=== PATIENT | male | born 1935 | race Caucasian/White ===

== ENCOUNTER 2018-06-14 09:32 | Emergency (ER) | payer MEDICARE, BC ==
[2018-06-14] MEDS ORDERED: Acetaminophen 500 MG TAB ONE (10:04)
--- NOTE | 2018-06-14 12:38 | RAD ---
RIGHT HUMERUS FRONTAL AND LATERAL IMAGIN06/14/2018 HISTORY: Bruising and pain. COMPARISON: None. FINDINGS: The humeral head is not fully imaged superiorly. Please see dedicated right shoulder series. The im aged portions of the right humerus demonstrate no displaced fracture. IMPRESSION: No acute fracture of the right humerus. POS: [facility]
--- NOTE | 2018-06-14 12:45 | RAD ---
RIGHT SHOULDER THREE VIEWS: HISTORY: Pain. Bruising. COMPARISON: 11/27/2013 FINDINGS: There appear to be chronic changes involving the right shoulder. No fracture or dislocation. IMPRESSION: Chronic changes. No fracture or dislocation. POS: [facility]
== END 2018-06-14 11:12 | disposition home or self-care (01) ==
LOC: ERS 09:32
DX: S40.011A Contusion of right shoulder, initial encounter (principal); S40.021A Contusion of right upper arm, initial encounter; Z87.891 Personal history of nicotine dependence; X58.XXXA Exposure to other specified factors, initial encounter

== ENCOUNTER 2019-03-10 13:37 | Outpatient (CLI) | payer MEDICARE, BC ==
--- NOTE | 2019-03-10 13:53 | RAD ---
XR Lumbar Spine 2 Or 3 View History: M 48.062 lumbar stenosis with claudication Comparison: Radiograph 2014 Findings: Right unilateral posterior spinal fusion hardware at L4-L5 without hardware complication. L 4/L5 anterolisthesis is similar. Progressive L5/S1 degenerative disc space height loss as well as L3/L4 and L2/L3 degenerative disc space height loss. 3 mm L2 over L3 retrolisthesis has progressed. Laminectomy changes L4/L5. Paraspinal soft tissues appear unremarkable. Impression: Mild progressive degenerative disease without acute osseous abnormality.
--- NOTE | 2019-03-10 14:56 | MRI ---
Exam: MRI LUMBAR SPINE WITHOUT CONTRAST: Comparison: 02/05/2007 Correlation: Lumbar spine radiograph series 03/10/2019 FINDINGS: Appropriate T1 marrow signal intensity of the lumbar vertebra. Lumbar spine vertebral body height is maintained. No fracture. Unilateral right sided transpedicular screw at L4-L5 with associated metallic streak artifact. 3.7 mm of retrolisthesis of L1 upon L2 , 4.5 mm retrolisthesis of L2 upon L3, 5.9 mm retrolisthesis of L4 upon L5. Appropriate signal intensity of the paraspinal muscles. Conus medullaris terminates at the inferior aspect of T12. Postcontrast images do not demonstrate any abnormal enhancement of the vertebral bodies. There is no abnormal enhancement within the thecal sac including the cauda equina and conus medullaris. The overall AP diameter of the central spinal canal is narrowed secondary to congenitally foreshorten ed pedicles T12-L1: No significant central canal stenosis or neural foraminal narrowing L1-L2: Mild loss of disc space height. No significant central canal stenosis. Mild to moderate bilate ral foraminal narrowing. L2-L3: Moderate loss of disc space height. Broad-based disc bulge, ligament flavum thickening and fac et hypertrophy result in mild to moderate central canal stenosis. Mass effect and narrowing of bilateral subarticular zones, left greater than right. Partial obscuration of both traversing L3 nerv e roots, left greater than right. Severe right and moderate to severe left foraminal narrowing. L3-L4: Mild to moderate loss of disc space height. Broad-based disc bulge, ligamentum flavum thickeni ng and facet hypertrophy result in severe central canal stenosis. Severe right and moderate to severe left neural foraminal narrowing. L4-L5: Broad-based disc bulge, bilateral facet hypertrophy are noted. There is mild central canal akiko nosis. Moderate to severe right and moderate left foraminal narrowing. There is fluid in left facet joint. L5-S1: Posterior laminectomy defect. There is a central/left subarticular disc protrusion. Disc mater ial obscures the traversing left S1 nerve root. Right subarticular zone is unremarkable. Moderate to severe right and left neural foraminal narrowing. IMPRESSION: 1. Unilateral right-sided transpedicular screws at L4-L5. 2. Spondylolisthesis as described above. 3. Central canal stenosis and foraminal narrowing as detailed above. 4. Central/left subarticular disc protrusion at L5-S1. Obscuration of the traversing left S1 nerve ro ot. Transcribed Date/Time: 03/10/2019 3:15 PM
== END 2019-03-10 13:38 | disposition home or self-care (01) ==
LOC: TBSIIMAG 13:37
PROVIDERS: ATTEND Neurological Surgery
DX: M48.062 Spinal stenosis, lumbar region with neurogenic claudication (principal); M51.36 Other intervertebral disc degeneration, lumbar region
CPT/HCPCS: 72100; 72158; 82565

== ENCOUNTER 2020-01-12 09:20 | Observation (INO) | payer MEDICARE, BC, OTHER ==
[2020-01-12] MEDS ORDERED: Aspirin Chewable 81 MG TAB ONE ×2 (09:38)
[2020-01-12 10:06] LABS: #Basophils 0.1 thou/uL (0.0-0.2); #Eosinphils 0.1 thou/uL (0.0-0.7); #Lymphocytes 1.9 thou/uL (1.20-3.40); #Monocytes 0.7 thou/uL (0.11-0.59); %Basophils 0.9 % (0.0-1.0); %Eosinophils 1.2 % (0.0-10.0); %Lymphocytes 24.8 % (21.0-51.0); %Monocytes 8.8 % (0.0-10.0); %Neutrophils 64.3 % (42.0-75.0); Hemoglobin 14.9 g/dL (14.0-18.0); Mean Corpuscular Hemoglobin 30.6 pg (27.0-31.0); Mean Corpuscular Volume 92.8 fL (78.0-98.0); Mean Platelet Volume 6.6 fL (7.4-10.4); Platelet Count 133 thou/uL (130-400); RBC Distribution Width 13.4 % (11.5-14.5); Red Blood Cell (RBC) Count 4.86 mill/uL (4.70-6.10); White Blood Cell (WBC) Count 7.8 thou/uL (4.8-10.8)
[2020-01-12 10:18] LABS: ALT (SGPT) 22 U/L (8-55); AST (SGOT) 23 U/L (5-34); Albumin 3.9 g/dL (3.4-4.8); Alkaline Phosphatase 79 U/L (40-110); Anion Gap 12 mmol/L (10-20); BUN (Urea Nitrogen) 15 mg/dL (8.4-25.7); Bilirubin, Total 0.6 mg/dL (0.2-1.2); Calc. Creatinine Clearance 0 mL/min (70-130); Calcium 9.2 mg/dL (7.8-10.44); Carbon Dioxide 27 mmol/L (23-31); Chloride 101 mmol/L (98-107); Estimated GFR-MDRD Greater than 90; Globulin 2.7 g/dL (2.4-3.5); Glucose 90 mg/dL (83-110); Potassium 4.2 mmol/L (3.5-5.1); Protein, Total 6.6 g/dL (5.8-8.1); Sodium 136 mmol/L (136-145)
--- NOTE | 2020-01-12 10:24 | RAD ---
Exam: Chest one view HISTORY:Left-sided chest pain Comparison: None FINDINGS: Cardiac silhouette: Normal Aorta: Atherosclerosis Pulmonary vessels: Normal Costophrenic angles: Clear LUNGS: No masses or consolidation. Pneumothorax: None Osseous abnormalities: None IMPRESSION: No acute cardiopulmonary process.
[2020-01-12] MEDS ORDERED: Acetaminophen 650 MG Suppository PR PRN (11:34)
[2020-01-12] MEDS ORDERED: HYDROcodone/Acetaminophen 5/325 mg Tablet PO PRN ×2 (11:34)
[2020-01-12] MEDS ORDERED: Nitroglycerin 0.4 MG TAB (25 Tab Bottle) PO PRN (11:34)
[2020-01-12] MEDS ORDERED: Acetaminophen 325 MG TAB PO PRN (11:34)
--- NOTE | 2020-01-12 11:48 | PDOC.HHP ---
Hospitalist HPI - History of Present Illness chest pain History of Present Illness: Case of an 84y/o male with pmhx of neuropathy, retinal detachment, macular degeneration and chronic back and shoulder pain who comes to hospital due to chest pain. patient refers he was on his usual state of health until todays morning when he started with chest pain. pain is described as stabbing 7/10 that radiates to the back, usually last a fews seconds and has reported over 15 episodes today. patient denies any sob, palpitations n/v or diaphoresis. of note family members does mentions that recently patients legs have began to swell, denies orthopnea or PND Hospitalist ROS - Review of Systems All other systems reviewed; all pertinent +/- noted in HPI/Subj Hospitalist History - Past Medical History Source: patient Heme/Onc: reports: Cancer (skin) Musculoskeletal: reports: Chronic low back pain, Osteoarthritis - Past Surgical History Past Surgical History: reports: Appendectomy Other Surgical History: back surgery - Family History Family History: reports: no pertinent history - Social History Smoking Status: Never smoker Alcohol: reports: None Drugs: reports: none Living Situation: With Family Activity level: independent ambulation - Exam General Appearance: NAD, awake alert Eye: PERRL, anicteric sclera ENT: normocephalic atraumatic Neck: supple, symmetric, no JVD Heart: RRR, no murmur, no gallops Respiratory: CTAB, no wheezes, no rales Gastrointestinal: soft, non-tender, non-distended Extremities: no cyanosis, no clubbing, 2+ LE edema Skin: normal turgor, no lesions Neurological: cranial nerve grossly intact, normal sensation to touch, no weakness Musculoskeletal: normal tone, normal strength Psychiatric: normal affect, normal behavior, A&O x 3 Hospitalist Results - Labs Result Diagrams: 01/12/20 09:51 01/12/20 09:51 Lab results: WBC 7.8 thou/uL (4.8-10.8) 01/12/20 09:51 Hgb 14.9 g/dL (14.0-18.0) 01/12/20 09:51 Hct 45.1 % (42.0-52.0) 01/12/20 09:51 MCV 92.8 fL (78.0-98.0) 01/12/20 09:51 Plt Count 133 thou/uL (130-400) 01/12/20 09:51 Neutrophils % 64.3 % (42.0-75.0) 01/12/20 09:51 Sodium 136 mmol/L (136-145) 01/12/20 09:51 Potassium 4.2 mmol/L (3.5-5.1) 01/12/20 09:51 Chloride 101 mmol/L (98-107) 01/12/20 09:51 Carbon Dioxide 27 mmol/L (23-31) 01/12/20 09:51 BUN 15 mg/dL (8.4-25.7) 01/12/20 09:51 Creatinine 0.69 mg/dL (0.7-1.3) L 01/12/20 09:51 Glucose 90 mg/dL (83-110) 01/12/20 09:51 Calcium 9.2 mg/dL (7.8-10.44) 01/12/20 09:51 Total Bilirubin 0.6 mg/dL (0.2-1.2) 01/12/20 09:51 AST 23 U/L (5-34) 01/12/20 09:51 ALT 22 U/L (8-55) 01/12/20 09:51 Alkaline Phosphatase 79 U/L (40-110) 01/12/20 09:51 Troponin I 0.026 ng/mL (< 0.028) 01/12/20 09:51 B-Natriuretic Peptide 337.6 pg/mL (0-100) H 01/12/20 09:51 Serum Total Protein 6.6 g/dL (5.8-8.1) 01/12/20 09:51 Albumin 3.9 g/dL (3.4-4.8) 01/12/20 09:51 - Radiology Interpretation Chest x-ray Additional Comment: on effusions consolidations or infiltrates Hospitalist H&P A/P - Problem (1) Chest pain Code(s): R07.9 - CHEST PAIN, UNSPECIFIED Status: Acute (2) Chronic back pain Code(s): M54.9 - DORSALGIA, UNSPECIFIED; G89.29 - OTHER CHRONIC PAIN Status: Acute (3) Macular degeneration Code(s): H35.30 - UNSPECIFIED MACULAR DEGENERATION Status: Acute (4) Neuropathy Code(s): G62.9 - POLYNEUROPATHY, UNSPECIFIED Status: Acute - Plan Plan: chest pain, atypical. no ischemic changes on ekg, initial troponin negative -starting cardio protective medication with beta roxann and acei -serial troponins - initial negative - evaluate modifiable risk factors with lipid panel and a1c - prn nitro po -2d echo - consult cardiology if necessary -dvt prophylaxis
--- NOTE | 2020-01-12 12:01 | CT ---
CT PULMONARY ANGIOGRAM WITH IV CONTRAST AND 3D MIP RECONSTRUCTIONS: Date: 01/12/2020 PROVIDED CLINICAL HISTORY: Chest pain. FINDINGS: No comparison. Vascular calcification including conspicuous coronary calcium. The heart, pericardium, and great vess els demonstrate an otherwise unremarkable CT appearance for the phase of contrast in which the study was acquired. There is no evidence for central or segmental pulmonary embolus. The lungs are free of significant opacity. The airway appears patent and of normal caliber. There is no evidence for pleural fluid or pneumothorax. No evidence for thoracic lymph node enlargement. The visualized portions of the upper abdomen appear unremarkable. The osseous structures demonstrate no concerning lytic or blastic lesions. IMPRESSION: 1. No evidence for central or segmental pulmonary embolus. 2. Atherosclerosis including coronary calcium. POS: [facility]
[2020-01-12 12:37] LABS: Troponin I 0.012 ng/mL (< 0.028)
[2020-01-12] MEDS ORDERED: Iopamidol-370 76% 500 ML 1 ML ONE (12:53)
[2020-01-12 15:19] VITALS: BMI 31.9
[2020-01-12 15:53] LABS: Troponin I 0.013 ng/mL (< 0.028)
[2020-01-12] MEDS: Carvedilol 3.125 MG TAB PO SCH (17:46)
[2020-01-13 05:36] LABS: Cardiac Risk 2.9 (Less than 4.5)
[2020-01-13] MEDS: Carvedilol 3.125 MG TAB PO SCH ×2 (07:24→17:12)
[2020-01-13] MEDS: Enoxaparin Sodium 40 MG/0.4 ML SYRINGE SC SCH (07:24)
[2020-01-13] MEDS ORDERED: Aspirin 325 mg Enteric Coated Tablet PO SCH (09:00)
[2020-01-13] MEDS ORDERED: hydrALAZINE 20 MG/ML VIAL SLOW IVP PRN (13:17)
[2020-01-13 14:27] LABS: SARS-CoV-2 MS2 Positive; SARS-CoV-2 N Gene Negative; SARS-CoV-2 S Gene Negative; SARS-CoV-2 orf1ab Negative
--- NOTE | 2020-01-13 15:19 | EKG ---
Test Reason : Blood Pressure : / mmHG Vent. Rate : 061 BPM Atrial Rate : 061 BPM P-R Int : 258 ms QRS Dur : 100 ms QT Int : 408 ms P-R-T Axes : 086 -09 -08 degrees QTc Int : 410 ms Sinus rhythm with 1st degree A-V block Left ventricular hypertrophy with repolarization abnormality Cannot rule out Septal infarct , age undetermined Abnormal ECG Confirmed by ZACHERY DENIS MD ([id number]), video effects editor JOANIE DOSHI ([id number]) on 01/13/2020 3:18:57 PM Referred By: Confirmed By:ZACHERY DENIS MD
--- NOTE | 2020-01-13 16:03 | PDOC.HOSPP ---
- Subjective Encounter Date: 01/13/20 Encounter Time: 10:00 Subjective: patient seen on f/u for covid r/o and chest pain. patient refers feeling fine denies any chest pain palpitation sob fever or chills. he does complain of some leg pain which is chronic, goes to pain clinic in institution - Objective Vital Signs & Weight: Vital Signs (12 hours) Temp Pulse Resp BP Pulse Ox 01/13/20 15:19 161/77 H 01/13/20 12:31 97.8 F 62 20 185/89 H 98 01/13/20 07:51 97.4 F L 68 20 190/86 H 97 01/13/20 05:24 66 175/77 H 01/13/20 04:23 98 F 64 16 193/82 H 100 Weight Weight 229 lb I&O: 01/12/20 01/13/20 01/14/20 06:59 06:59 06:59 Intake Total 300 480 Output Total 1100 500 Balance -800 -20 Result Diagrams: 01/12/20 09:51 01/12/20 09:51 Hospitalist ROS - Review of Systems All other systems reviewed; all pertinent +/- noted in HPI/Subj - Medication Medications: Active Medications Generic Name Dose Route Start Last Admin Trade Name Freq PRN Reason Stop Dose Admin Aspirin 325 mg 01/13/20 09:00 01/13/20 07:24 Ecotrin PO 325 mg DAILY NAYELY Administration Carvedilol 3.125 mg 01/12/20 17:00 01/13/20 07:24 Coreg PO 3.125 mg BID-WM NAYELY Administration Enoxaparin Sodium 40 mg 01/13/20 09:00 01/13/20 07:24 Lovenox SC 40 mg 0900 NAYELY Administration - Exam General Appearance: NAD, awake alert Eye: PERRL, anicteric sclera ENT: normocephalic atraumatic, no oropharyngeal lesions Neck: supple, no JVD, no thyromegaly Heart: RRR, no murmur, no gallops Respiratory: CTAB, no wheezes, no rales Gastrointestinal: soft, non-tender, non-distended, no palpable masses Extremities: no cyanosis, no clubbing, 2+ LE edema Skin: normal turgor, no lesions Neurological: cranial nerve grossly intact, normal sensation to touch Musculoskeletal: normal tone, normal strength Psychiatric: normal affect, normal behavior, A&O x 3 Hosp A/P (1) Chest pain Code(s): R07.9 - CHEST PAIN, UNSPECIFIED Status: Acute (2) Chronic back pain Code(s): M54.9 - DORSALGIA, UNSPECIFIED; G89.29 - OTHER CHRONIC PAIN Status: Acute (3) Macular degeneration Code(s): H35.30 - UNSPECIFIED MACULAR DEGENERATION Status: Acute (4) Neuropathy Code(s): G62.9 - POLYNEUROPATHY, UNSPECIFIED Status: Acute (5) COVID-19 ruled out Code(s): Z03.818 - ENCNTR FOR OBS FOR SUSP EXPSR TO OTH BIOLG AGENTS RULED OUT Status: Acute (6) Uncontrolled hypertension Code(s): I10 - ESSENTIAL (PRIMARY) HYPERTENSION Status: Acute - Plan - troponin negative x 3 - chest pain free - a1c of 5 - adequate cholesterol, heart risk ratio of 2.9 - covid 19 r/o will discontinued isolation - 2d echo pending, needed to evaluated undiagnosed chf, recent new onset of leg swelling - uncontrolled htn, hydralazine prn. started on lisinopril 10mg pod, will likely require a higher dose -dvt prophylaxis
[2020-01-14] MEDS: Carvedilol 3.125 MG TAB PO SCH (08:00)
[2020-01-14] MEDS: Enoxaparin Sodium 40 MG/0.4 ML SYRINGE SC SCH (08:00)
[2020-01-14] MEDS ORDERED: Chlorthalidone 25 MG TAB PO SCH (09:00)
[2020-01-14] MEDS ORDERED: Aspirin 81 mg Enteric Coated Tablet PO SCH (09:00)
[2020-01-14] MEDS ORDERED: Lisinopril 10 MG TAB PO SCH ×3 (09:00)
--- NOTE | 2020-01-14 14:33 | PDOC.HOSPP ---
- Subjective Encounter Date: 01/14/20 Encounter Time: 08:00 Subjective: no overnight events. this morning swelling is improved. Has no complaints. Denies syncope, presyncope, palpitaitons, chest pain, dyspnea, orthopnea, PND. Daughter at bedside surprised at exam findings c/w heart failure but recalls later during encounter that the possibility of heart failure was mentioned. - Objective Vital Signs & Weight: Vital Signs (12 hours) Temp Pulse Resp BP BP Pulse Ox 01/14/20 11:40 97.5 F L 63 16 151/66 H 97 01/14/20 09:46 71 121/59 L 01/14/20 07:43 97.8 F 66 18 191/87 H 96 01/14/20 04:55 98.2 F 82 14 138/64 96 Weight Weight 229 lb I&O: 01/13/20 01/14/20 01/15/20 06:59 06:59 06:59 Intake Total 300 960 Output Total 1100 1800 Balance -800 -840 Result Diagrams: 01/12/20 09:51 01/12/20 09:51 Hospitalist ROS - Review of Systems Constitutional: denies: fever, chills, sweats, weakness, malaise, other Respiratory: denies: cough, dry, shortness of breath, hemoptysis, SOB with excertion, pleuritic pain, sputum, wheezing, other Cardiovascular: denies: chest pain, palpitations, orthopnea, paroxysmal noc. dyspnea, edema, light headedness, other Gastrointestinal: denies: nausea, vomiting, abdominal pain, diarrhea, constipation, melena, hematochezia, other - Medication Medications: Active Medications Generic Name Dose Route Start Last Admin Trade Name Freq PRN Reason Stop Dose Admin Aspirin 81 mg 01/14/20 09:00 01/14/20 08:54 Ecotrin PO 81 mg DAILY NAYELY Administration Carvedilol 3.125 mg 01/12/20 17:00 01/14/20 08:00 Coreg PO 3.125 mg BID-WM NAYELY Administration Chlorthalidone 25 mg 01/14/20 09:00 01/14/20 08:54 Hygroton PO 25 mg DAILY NAYELY Administration Enoxaparin Sodium 40 mg 01/13/20 09:00 01/14/20 08:00 Lovenox SC 40 mg 0900 NAYELY Administration Sodium Chloride 10 ml 01/13/20 21:00 01/14/20 08:01 Flush - Normal Saline IVF 10 ml Q12HR NAYELY Administration - Exam General Appearance: NAD, awake alert Neck: no JVD Heart: RRR, no murmur, no gallops Respiratory: no wheezes, no ronchi, no tachypnea Respiratory - other findings: b/l lower field inspiratory rales Gastrointestinal: soft, non-tender, non-distended Extremities: 2+ LE edema Extremities - other findings: per patient, improved Psychiatric: normal affect, normal behavior, A&O x 3 Hosp A/P - Plan #HFpEF -HF2pEF score 5; considering elevated BNP, likely has HFpEF -better control of HTN -diuresis #HTN -poorly controlled -start chlorthalidone ELOS: likely DC later today or tomorrow
[2020-01-14 15:51] VITALS: BP 139/74; TEMP 98.1
[2020-01-15] MEDS ORDERED: Lisinopril 10 MG TAB PO SCH (09:00)
--- NOTE | 2020-01-16 06:18 | DIS ---
DATE OF ADMISSION: 01/12/2020 DATE OF DISCHARGE: 01/14/2020 HOSPITAL COURSE: Mr. Leigh is an 84-year-old male with medical history of chronic back pain and shoulder pain, who presented with chest pain and new onset lower extremity swelling. He was diagnosed with noncardiac chest pain as well as new onset CHF with preserved ejection fraction based on an HF2PEF score of 5 and elevated BNP. The patient was started on ALVARO inhibitor and beta-roxann, and his symptoms have improved. Prior to discharge, the patient was provided instructions regarding his new diagnosis of heart failure as well as followup appointment with Cardiology. He was discharged hemodynamically stable with better controlled blood pressure considering he presented with grossly elevated blood pressure and resolution of chest pain. PHYSICAL EXAMINATION: VITAL SIGNS: Blood pressure 151/66, temperature 97.5, pulse 63, respiratory rate 16, and oxygen saturation 97% on room air. GENERAL: Lying comfortably in bed. Awake and alert. NECK: No JVD. HEART: Regular rate and rhythm. No murmur. No gallops. RESPIRATORY: No wheezing, rhonchi, or tachypnea. Has mild bilateral lower field inspiratory rales. GI: Soft, nontender, and nondistended. EXTREMITIES: +2 lower extremity edema, pitting, equal bilateral, per the patient improved compared to the day of admission. PSYCHIATRIC: Proper mood and affect. Alert and oriented x3. MEDICATION LIST: New medications; 1. Aspirin 81 mg p.o. daily. 2. Carvedilol 3.125 mg p.o. b.i.d. 3. Chlorthalidone 25 mg p.o. daily. 4. Lasix 20 mg p.o. b.i.d. eight tablets, pending appointment with Cardiology. 5. Lisinopril 20 mg p.o. daily. Other medications were unchanged. Job ID: [id number]
== END 2020-01-14 16:40 | disposition home or self-care (01) ==
LOC: ERS 09:20 → ERHOLD 11:03 → 2NO 14:48 → 2SW 15:01 → 2NO 01-13 16:34
PROVIDERS: ADMIT Internal Medicine; ATTEND Internal Medicine
DX: R07.89 Other chest pain (principal); I11.0 Hypertensive heart disease with heart failure; I50.30 Unspecified diastolic (congestive) heart failure; G89.29 Other chronic pain; M54.9 Dorsalgia, unspecified; H35.30 Unspecified macular degeneration; G62.9 Polyneuropathy, unspecified; Z79.82 Long term (current) use of aspirin; Z79.899 Other long term (current) drug therapy
CPT/HCPCS: 71045; 71275; 80053; 80061; 83036; 83880; 84443; 84484 ×2; 85025; 85379; 93005; 93306; 94760 ×2; 97139 ×3; 99285; U0003; 36415; 87635; 96372; G0378; J1650; Q9967

== ENCOUNTER 2020-01-26 07:32 | Outpatient (CLI) | payer MEDICARE, BC ==
--- NOTE | 2020-01-26 08:23 | RAD ---
EXAM: XR Cerv Sp Ap Lat STANDARD PROVIDED CLINICAL HISTORY: Cervical radiculopathy. Patient complains of bilateral shoulder pain and numbness in hands. COMPARISON: None FINDINGS: C1 to the cervicothoracic junction is seen on lateral and swimmer's views of the cervical spine. Mult ilevel degenerative changes are seen including facet degenerative changes at multiple levels. There is trace anterolisthesis of C5 on C6 likely to the facet degenerative changes at this level. The vert ebral body heights appear to be within normal limits, no obvious fracture is identified. The odontoid is not well delineated on this exam and mostly obscured on provided images including the lat eral view. Prevertebral soft tissues are within normal limits. Vascular calcifications are seen in the aortic arch and overlying the neck bilaterally. IMPRESSION: 1. Obscuration and limited evaluation of the odontoid due to overlying structures. 2. Multilevel degenerative changes in the cervical spine with trace grade 1 anterolisthesis of C5 on C6. 3. No obvious fracture is seen involving the cervical spine. 4. Given cervical radiculopathy, MRI cervical spine may be helpful for further evaluation.
--- NOTE | 2020-01-26 08:35 | RAD ---
RIGHT HIP 2 VIEWS: Date: 01/26/2020 HISTORY: Arthralgia of right hip. FINDINGS/IMPRESSION: Degenerative changes are present. No fracture, dislocation, or bony destruction is identified. POS: [facility]
--- NOTE | 2020-01-26 10:00 | MRI ---
MRI CERVICAL SPINE: DATE: 01/26/2020. PROVIDED CLINICAL HISTORY: Bilateral shoulder pain and numbness in hands. FINDINGS: Comparison is made with the examination performed 05/01/2009. There is slight anterolisthesis of C5 o n C6. Cervical alignment appears otherwise normal. No focal concerning regional marrow signal abnor mality is evident. Heterogeneity of the regional marrow signal on a senescent basis is demonstrated. Subcortical cyst-like changes are seen within the odontoid. The visualized posterior fossa and cer vicomedullary junction appear unremarkable. No definite cord signal abnormality, with limitations du e to patient motion. At C2-3, there is bilateral facet arthritis with bilateral foraminal narrowing. This is difficult to qualify due to patient motion. There is no significant central canal stenosis apparent. At C3-4, there is bilateral facet arthritis left greater than right with probably severe left foramin al narrowing. No significant right foraminal narrowing or central canal stenosis apparent. At C4-5, there is left greater than right facet arthritis and left-sided uncinate process hypertrophy with probably severe foraminal narrowing on the left. No significant central canal or right foramin al narrowing apparent. At C5-6, there is a broad-based disk-osteophyte complex, bilateral uncinate process hypertrophy, and bilateral facet arthritis. There is severe left and moderate right foraminal narrowing. There is ef facement of the ventral subarachnoid space without cord contact or deformity. At C6-7, there is a broad-based disk-osteophyte complex and bilateral uncinate process hypertrophy. Left-sided facet arthritis. Moderate bilateral foraminal narrowing. Effacement of the ventral subar achnoid space without cord contact or deformity apparent. At C7-T1, there is left-sided facet arthritis and uncinate process hypertrophy with at least moderate foraminal narrowing on the left. There is no significant central canal or right foraminal narrowing apparent. IMPRESSION: 1. Limited study due to patient motion. 2. Cervical degenerative changes producing areas of canal and foraminal narrowing as described above . These appear similar advanced with respect to the prior study. POS: [facility]
== END 2020-01-26 07:33 | disposition home or self-care (01) ==
LOC: TBSIIMAG 07:32
PROVIDERS: ATTEND Family Medicine
DX: M50.10 Cervical disc disorder with radiculopathy, unspecified cervical region (principal); M25.551 Pain in right hip; M16.11 Unilateral primary osteoarthritis, right hip; M43.12 Spondylolisthesis, cervical region; M48.02 Spinal stenosis, cervical region
CPT/HCPCS: 72040; 72141

== ENCOUNTER 2020-04-23 07:56 | Outpatient (CLI) | payer MEDICARE, BC, OTHER ==
[2020-04-23 17:59] LABS: #Basophils 0.1 thou/uL (0.0-0.2); #Eosinphils 0.3 thou/uL (0.0-0.7); #Lymphocytes 1.4 thou/uL (1.20-3.40); #Monocytes 0.7 thou/uL (0.11-0.59); #Neutrophils 5.5 thou/uL (1.40-6.50); %Basophils 0.7 % (0.0-1.0); %Eosinophils 3.2 % (0.0-10.0); %Lymphocytes 18.1 % (21.0-51.0); %Monocytes 9.1 % (0.0-10.0); %Neutrophils 68.8 % (42.0-75.0); Hemoglobin 13.1 g/dL (14.0-18.0); Mean Corpuscular HGB CONC 33.7 g/dL (32.0-36.0); Mean Corpuscular Hemoglobin 32.1 pg (27.0-31.0); Mean Corpuscular Volume 95.2 fL (78.0-98.0); Mean Platelet Volume 6.9 fL (7.4-10.4); Platelet Count 121 thou/uL (130-400); RBC Distribution Width 12.5 % (11.5-14.5)
[2020-04-23 18:19] LABS: Anion Gap 16 mmol/L (10-20); BUN (Urea Nitrogen) 26 mg/dL (8.4-25.7); Calc. Creatinine Clearance 0 mL/min (70-130); Calcium 9.1 mg/dL (7.8-10.44); Carbon Dioxide 25 mmol/L (23-31); Chloride 99 mmol/L (98-107); Estimated GFR-MDRD Greater than 90; Glucose 87 mg/dL (83-110); Potassium 4.7 mmol/L (3.5-5.1); Sodium 135 mmol/L (136-145)
[2020-04-24 15:01] LABS: SARS-CoV-2 MS2 Positive; SARS-CoV-2 N Gene Negative; SARS-CoV-2 S Gene Negative; SARS-CoV-2 by NAA Not Detected (NotDetected); SARS-CoV-2 orf1ab Negative
--- NOTE | 2020-04-24 16:21 | EKG ---
Test Reason : PREOP Blood Pressure : / mmHG Vent. Rate : 057 BPM Atrial Rate : 057 BPM P-R Int : 330 ms QRS Dur : 102 ms QT Int : 426 ms P-R-T Axes : -29 010 058 degrees QTc Int : 414 ms Sinus bradycardia with 1st degree A-V block Non-specific intra-ventricular conduction delay Abnormal ECG No previous ECGs available Confirmed by CORKY DOSHI ([id number]) on 04/24/2020 4:21:01 PM Referred By: Tereza BEAN Confirmed By:CORKY DOSHI
== END 2020-04-23 07:57 | disposition home or self-care (01) ==
LOC: LABBT 07:56
PROVIDERS: ATTEND Orthopaedic Surgery
DX: Z01.818 Encounter for other preprocedural examination (principal); Z20.828 Contact with and (suspected) exposure to other viral communicable diseases
CPT/HCPCS: 80048; 85025; U0003; 87635; 93005; 93010

== ENCOUNTER 2020-04-26 11:15 | Day surgery (SDC) | payer MEDICARE, BC ==
[2020-04-24 11:22] VITALS: BMI 33.0
--- NOTE | 2020-04-24 14:39 | HP ---
HISTORY OF PRESENT ILLNESS: The patient is an 83 year old male with several month history of pain and tingling in median distribution of his left hand without injury. He has had symptoms for several years. It has become worse over the past several months and has persisted despite restriction of activity, splinting, and use of anti-inflammatory medications. PAST MEDICAL HISTORY: The patient has a history of back surgery and neuropathy and has had previous shoulder surgery. He was hospitalized several months ago for an episode of congestive heart failure, which has been stabilized with medications under the direction of Dr. Erazo. The patient states he discussed having carpal tunnel surgery, Dr. Erazo, who found that no contraindication from a cardiac standpoint. He also has glaucoma and takes several ophthalmic drops for this. He also takes low-dose aspirin. ALLERGIES: NO KNOWN ALLERGIES. FAMILY HISTORY: Otherwise unremarkable. SOCIAL HISTORY: Otherwise unremarkable. REVIEW OF SYSTEMS: Otherwise unremarkable. PHYSICAL EXAMINATION: GENERAL: Elderly healthy male. HEENT: Unremarkable. NECK: Supple. CHEST: Clear. HEART: Regular rate and rhythm. ABDOMEN: Soft, nontender. RECTAL: Deferred. GENITAL: Deferred. EXTREMITIES: Pertinent findings in the left wrist. There is no definite swelling. There is mild thenar atrophy. There is tenderness over the median nerve. There is full range of motion. There is weakness of opposition. There is negative Tinel sign. Negative Phalen test. There is decreased sensation in median nerve distribution. Pulses are 2+. DIAGNOSTIC STUDIES: Electrodiagnostic studies performed by Dr. Gibson reveal moderately severe left carpal tunnel syndrome. IMPRESSION: Left carpal tunnel syndrome. PLAN: Endoscopic possible open left carpal tunnel release. The nature of surgery, length of recovery, and potential complications such as infection, loss of motion, incomplete relief, nerve injury, recurrence, and need for additional treatment and repeat surgery have been discussed in detail. Job ID: [id number] [facility]
[~2020-04-26 11:15] MED LIST: Dexamethasone 20 MG/5 ML VIAL ONE; Ketorolac Tromethamine 30 MG/ML VIAL ONE; Lidocaine 1% PF 5 ML VIAL ONE; Ondansetron PF 4 MG/2 ML Vial ONE; PROPOFOL 200 MG/20 ML VIAL ONE
[2020-04-26] MEDS ORDERED: Lidocaine 1% (PF) 30 ML VIAL ONE (12:42)
--- NOTE | 2020-04-26 19:20 | OP ---
DATE OF PROCEDURE: 04/26/2020 ANESTHESIA: General. PREOPERATIVE DIAGNOSIS: Left carpal tunnel syndrome. POSTOPERATIVE DIAGNOSIS: Left carpal tunnel syndrome. PROCEDURE PERFORMED: Left endoscopic carpal tunnel release. DESCRIPTION OF PROCEDURE: After satisfactory anesthesia was induced in supine position, the patient was prepped and draped in routine manner. The left arm was elevated and exsanguinated with an Esmarch bandage, and the tourniquet was inflated to 250 mmHg. A 2 cm transverse incision was made in the proximal wrist flexion crease, carried down through the subcutaneous tissues and bleeding points were controlled with Bovie cautery. Using sharp and blunt dissection, a distally-based flap at the deep forearm fascia was developed and retracted distally. Palmaris longus tendon was retracted radially. Proximal edge of the deep forearm fascia was split under direct visualization with small scissors to make sure there was no proximal impingement of the median nerve. Synovial elevator was introduced beneath the transverse carpal ligament and the synovium cleaned from the under surface. The 3M Serenity endoscopic carpal tunnel system was induced beneath the transverse carpal ligament inline with the ring finger. The distal edge of the ligament was identified and then divided in a distal to proximal direction by pulling the trigger of the assembly, engaging the knife, and withdrawing the scope proximally. This was done in several stages to make sure there was complete division of the transverse carpal ligament, which was documented with video printer. After withdrawing the scope, a carpal tunnel dilator could be inserted into the carpal tunnel and there was markedly improved passage and subcutaneous position of the instrument. The scope was reintroduced into the carpal tunnel. There was wide separation of the 2 leaves of the transverse carpal ligament. The tourniquet was released after 6 minutes. There was no excessive bleeding. The scope was withdrawn. The wound was thoroughly irrigated and closed with running subcuticular 3-0 nylon. Sterile dressing was applied. The patient immobilized in his Velcro wrist splint. He was awakened, taken to the recovery room in stable condition. There were no apparent intraoperative complications. The estimated blood loss was negligible. The patient will be discharged home in satisfactory condition, instructed on ice and elevation, and given written wound care instructions. He has tramadol at home for pain. He will be rechecked in my office in 10 to 14 days or sooner if there are any problems prior to that time. Job ID: [id number]
== END 2020-04-26 15:50 | disposition home or self-care (01) ==
LOC: SDC 11:15
PROVIDERS: ATTEND Orthopaedic Surgery
PROC: 01N54ZZ Release Median Nerve, Percutaneous Endoscopic Approach (ICD-10-PCS; principal; 2020-04-26)
DX: G56.02 Carpal tunnel syndrome, left upper limb (principal); Z87.891 Personal history of nicotine dependence; Z79.82 Long term (current) use of aspirin; Z79.899 Other long term (current) drug therapy; Z98.1 Arthrodesis status
CPT/HCPCS: J0690; J1100; J1885; J2001; J2405; J2704

== ENCOUNTER 2020-12-07 13:39 | Emergency (ER) | payer MEDICARE, BC ==
[2020-12-07] MEDS ORDERED: Morphine 4 MG/ML VIAL ONE (14:44)
== END 2020-12-07 15:46 | disposition short-term general hospital (02) ==
LOC: ERS 13:39
DX: G89.29 Other chronic pain (principal); M54.5 Low back pain; I50.30 Unspecified diastolic (congestive) heart failure; G62.9 Polyneuropathy, unspecified; Z87.891 Personal history of nicotine dependence
CPT/HCPCS: 96372; 99283; J2270

== ENCOUNTER 2021-06-09 11:58 | Emergency (ER) | payer MEDICARE, BC ==
[2021-06-09 12:43] LABS: #Eosinphils 0.1 thou/uL (0.0-0.7); #Lymphocytes 0.8 thou/uL (1.20-3.40); #Monocytes 0.7 thou/uL (0.11-0.59); #Neutrophils 6.6 thou/uL (1.40-6.50); %Basophils 0.5 % (0.0-1.0); %Eosinophils 1.7 % (0.0-10.0); %Lymphocytes 9.7 % (21.0-51.0); Hemoglobin 14.3 g/dL (14.0-18.0); Mean Corpuscular HGB CONC 34.5 g/dL (32.0-36.0); Mean Corpuscular Hemoglobin 31.7 pg (27.0-31.0); Mean Corpuscular Volume 91.8 fL (78.0-98.0); Mean Platelet Volume 6.4 fL (7.4-10.4); Platelet Count 129 thou/uL (130-400); RBC Distribution Width 12.8 % (11.5-14.5); White Blood Cell (WBC) Count 8.2 thou/uL (4.8-10.8)
[2021-06-09] MEDS ORDERED: Albuterol 200 PUFF (6.7GM INHALER) ONE (12:56)
[2021-06-09 13:05] LABS: ALT (SGPT) 17 U/L (8-55); AST (SGOT) 24 U/L (5-34); Albumin 4.1 g/dL (3.4-4.8); Alkaline Phosphatase 98 U/L (40-110); Anion Gap 14 mmol/L (10-20); BUN (Urea Nitrogen) 10 mg/dL (8.4-25.7); Bilirubin, Total 1.5 mg/dL (0.2-1.2); Calc. Creatinine Clearance 0 mL/min (70-130); Calcium 9.5 mg/dL (7.8-10.44); Carbon Dioxide 26 mmol/L (23-31); Chloride 94 mmol/L (98-107); Glucose 146 mg/dL (83-110); Potassium 4.2 mmol/L (3.5-5.1); Protein, Total 7.1 g/dL (5.8-8.1); Sodium 130 mmol/L (136-145)
[2021-06-09 13:16] LABS: SARS-CoV-2 NAA Rapid Test Not Detected (NotDetected)
== END 2021-06-09 14:58 | disposition home or self-care (01) ==
LOC: ERS 11:58
DX: B34.9 Viral infection, unspecified (principal); J98.01 Acute bronchospasm; Z20.822 Contact with and (suspected) exposure to COVID-19; Z79.899 Other long term (current) drug therapy; Z79.82 Long term (current) use of aspirin; I50.30 Unspecified diastolic (congestive) heart failure; Z87.891 Personal history of nicotine dependence
CPT/HCPCS: 0240U; 71045; 80053; 83605; 83880; 84484; 85025; 93005; 36415

== ENCOUNTER 2022-01-13 11:09 | Emergency (ER) | payer MEDICARE, BC ==
[2022-01-13] MEDS ORDERED: Ketorolac Tromethamine 30 MG/ML VIAL ONE (13:44)
[2022-01-13] MEDS ORDERED: predniSONE 20 MG TAB ONE (13:44)
[2022-01-13 14:11] LABS: Bilirubin Negative (Negative); Blood, Urine Negative (Negative); Clarity Clear (Clear); Glucose, Urine (Dipstick) Normal (Negative); Ketone, Urine Negative (Negative); Leukocyte Negative Leu/uL (Negative); Nitrite Negative (Negative); Protein, Urine (Dipstick) Negative (Neg-Trace); Specific Gravity, Urine 1.011 (1.002-1.036); Urobilinogen Normal mg/dL (Less than 2); pH, Urine 6.5 (5.0-9.0)
== END 2022-01-13 15:00 | disposition home or self-care (01) ==
LOC: ERS 11:09
DX: M62.830 Muscle spasm of back (principal); M54.50 Low back pain, unspecified; I50.9 Heart failure, unspecified; Z87.891 Personal history of nicotine dependence; Z79.899 Other long term (current) drug therapy; Z79.82 Long term (current) use of aspirin
CPT/HCPCS: 81003; 96372; 99283; J1885; J7512

== ENCOUNTER 2022-01-17 17:06 | Emergency (ER) | payer MEDICARE, BC ==
[2022-01-17] MEDS ORDERED: Morphine 4 MG/ML VIAL ONE (18:57)
[2022-01-17] MEDS ORDERED: Ondansetron ODT 4 MG TAB ONE (18:57)
== END 2022-01-17 19:21 | disposition home or self-care (01) ==
LOC: ERS 17:06
DX: M54.50 Low back pain, unspecified (principal); I50.9 Heart failure, unspecified; Z87.891 Personal history of nicotine dependence; Z79.899 Other long term (current) drug therapy; Z79.82 Long term (current) use of aspirin
CPT/HCPCS: 96372; 99283; J2270; Q0162

== ENCOUNTER 2022-01-20 10:11 | Inpatient (IN) | payer MEDICARE, BC ==
[2022-01-20] MEDS ORDERED: Morphine 4 MG/ML VIAL ONE (11:39)
[2022-01-20] MEDS ORDERED: Ondansetron PF 4 MG/2 ML Vial ONE (11:39)
[2022-01-20] MEDS ORDERED: Lorazepam 2 MG/ML VIAL ONE (11:39)
[2022-01-20] MEDS ORDERED: Ketorolac Tromethamine 30 MG/ML VIAL ONE (11:39)
[2022-01-20 11:56] LABS: #Basophils 0.1 thou/uL (0.0-0.2); #Eosinphils 0.1 thou/uL (0.0-0.7); #Lymphocytes 1.6 thou/uL (1.20-3.40); #Monocytes 0.6 thou/uL (0.11-0.59); #Neutrophils 5.8 thou/uL (1.40-6.50); %Basophils 0.6 % (0.0-1.0); %Eosinophils 1.8 % (0.0-10.0); %Lymphocytes 19.4 % (21.0-51.0); %Monocytes 7.2 % (0.0-10.0); %Neutrophils 70.9 % (42.0-75.0); Hemoglobin 13.8 g/dL (14.0-18.0); Mean Corpuscular HGB CONC 32.4 g/dL (32.0-36.0); Mean Corpuscular Hemoglobin 31.6 pg (27.0-31.0); Mean Corpuscular Volume 97.5 fL (78.0-98.0); Mean Platelet Volume 6.3 fL (7.4-10.4); Platelet Count 100 thou/uL (130-400); RBC Distribution Width 12.9 % (11.5-14.5); Red Blood Cell (RBC) Count 4.37 mill/uL (4.70-6.10); White Blood Cell (WBC) Count 8.2 thou/uL (4.8-10.8)
[2022-01-20 12:03] LABS: PTT 34.3 sec (22.9-36.1); Prothrombin Time 13.7 sec (12.0-14.7)
[2022-01-20 12:20] LABS: ALT (SGPT) 22 U/L (8-55); AST (SGOT) 34 U/L (5-34); Albumin 3.5 g/dL (3.4-4.8); Alkaline Phosphatase 77 U/L (40-110); Anion Gap 14 mmol/L (10-20); BUN (Urea Nitrogen) 16 mg/dL (8.4-25.7); CK (CPK) 13 U/L (30-200); Calc. Creatinine Clearance 0 mL/min (70-130); Carbon Dioxide 26 mmol/L (23-31); Chloride 97 mmol/L (98-107); Globulin 2.8 g/dL (2.4-3.5); Glucose 79 mg/dL (83-110); Lipase 15 U/L (8-78); Potassium 5.6 mmol/L (3.5-5.1); Protein, Total 6.3 g/dL (5.8-8.1); Sodium 131 mmol/L (136-145)
[2022-01-20] MEDS ORDERED: hydrALAZINE 20 MG/ML VIAL ONE (14:23)
[2022-01-20] MEDS ORDERED: Ondansetron ODT 4 MG TAB PO PRN (14:59)
[2022-01-20] MEDS ORDERED: Acetaminophen 325 MG TAB PO PRN (14:59)
[2022-01-20] MEDS ORDERED: hydrALAZINE 20 MG/ML VIAL SLOW IVP PRN (14:59)
[2022-01-20] MEDS ORDERED: Ondansetron PF 4 MG/2 ML Vial IVP PRN (14:59)
[2022-01-20] MEDS ORDERED: Morphine 2 MG/ML VIAL SLOW IVP PRN (15:00)
[2022-01-20] MEDS ORDERED: Dexamethasone 10 MG/ML VIAL SLOW IVP SCH (17:15)
[2022-01-20 19:43] VITALS: BMI 30.1
[2022-01-20] MEDS: Gabapentin 300 MG CAP PO SCH (20:10)
[2022-01-21 06:20] LABS: #Basophils 0.1 thou/uL (0.0-0.2); #Eosinphils 0.1 thou/uL (0.0-0.7); #Lymphocytes 1.4 thou/uL (1.20-3.40); #Monocytes 0.7 thou/uL (0.11-0.59); #Neutrophils 5.2 thou/uL (1.40-6.50); %Basophils 0.8 % (0.0-1.0); %Eosinophils 1.9 % (0.0-10.0); %Lymphocytes 18.1 % (21.0-51.0); %Monocytes 9.6 % (0.0-10.0); %Neutrophils 69.7 % (42.0-75.0); Hemoglobin 12.9 g/dL (14.0-18.0); Mean Corpuscular HGB CONC 32.9 g/dL (32.0-36.0); Mean Corpuscular Hemoglobin 32.3 pg (27.0-31.0); Mean Corpuscular Volume 98.2 fL (78.0-98.0); Mean Platelet Volume 6.6 fL (7.4-10.4); Platelet Count 81 thou/uL (130-400); RBC Distribution Width 12.8 % (11.5-14.5); Red Blood Cell (RBC) Count 4.01 mill/uL (4.70-6.10); White Blood Cell (WBC) Count 7.4 thou/uL (4.8-10.8)
[2022-01-21 06:49] LABS: Anion Gap 12 mmol/L (10-20); BUN (Urea Nitrogen) 18 mg/dL (8.4-25.7); Calc. Creatinine Clearance 100 mL/min (70-130); Calcium 8.7 mg/dL (7.8-10.44); Carbon Dioxide 24 mmol/L (23-31); Chloride 100 mmol/L (98-107); Glucose 90 mg/dL (83-110); Magnesium 1.9 mg/dL (1.6-2.6); Potassium 4.3 mmol/L (3.5-5.1); Sodium 132 mmol/L (136-145)
[2022-01-21] MEDS ORDERED: Non-Formulary Item 1 EACH (Timolol [Betimol 0.5% Ophth Solution] 5 ML Bottle) EA EYE SCH (09:00)
[2022-01-21] MEDS: Spironolactone 25 MG TAB PO SCH (10:37)
[2022-01-21] MEDS: Gabapentin 300 MG CAP PO SCH ×3 (10:37→20:30)
[2022-01-21] MEDS: Losartan 25 MG TAB PO SCH (10:37)
[2022-01-21] MEDS: Brimonidine Tartrate 0.2% Ophth Soln 5 ml Bottle R EYE SCH (10:38)
[2022-01-21] MEDS: Timolol 0.5% Ophth Soln 5 ml Bottle EA EYE SCH (10:38)
[2022-01-21] MEDS ORDERED: Diazepam 5 MG TAB PO PRN (11:15)
[2022-01-21] MEDS ORDERED: Latanoprost 0.005% Ophth Soln 2.5 ml Bottle R EYE SCH (21:00)
[2022-01-22 06:37] LABS: #Eosinphils 0.2 thou/uL (0.0-0.7); #Lymphocytes 1.5 thou/uL (1.20-3.40); #Neutrophils 5.3 thou/uL (1.40-6.50); %Basophils 0.4 % (0.0-1.0); %Eosinophils 2.5 % (0.0-10.0); %Monocytes 12.3 % (0.0-10.0); %Neutrophils 65.8 % (42.0-75.0); Hemoglobin 13.7 g/dL (14.0-18.0); Mean Corpuscular HGB CONC 32.8 g/dL (32.0-36.0); Mean Corpuscular Hemoglobin 32.2 pg (27.0-31.0); Mean Corpuscular Volume 98.3 fL (78.0-98.0); Mean Platelet Volume 6.4 fL (7.4-10.4); Platelet Count 88 thou/uL (130-400); RBC Distribution Width 12.8 % (11.5-14.5); Red Blood Cell (RBC) Count 4.26 mill/uL (4.70-6.10); White Blood Cell (WBC) Count 8.1 thou/uL (4.8-10.8)
[2022-01-22 06:58] LABS: Anion Gap 12 mmol/L (10-20); BUN (Urea Nitrogen) 13 mg/dL (8.4-25.7); Calc. Creatinine Clearance 109 mL/min (70-130); Calcium 8.9 mg/dL (7.8-10.44); Carbon Dioxide 27 mmol/L (23-31); Chloride 100 mmol/L (98-107); Estimated GFR 91; Glucose 102 mg/dL (83-110); Potassium 4.5 mmol/L (3.5-5.1); Sodium 134 mmol/L (136-145)
[2022-01-22 07:47] VITALS: BP 152/82; TEMP 97.5
[2022-01-22] MEDS: Spironolactone 25 MG TAB PO SCH (08:43)
[2022-01-22] MEDS: Gabapentin 300 MG CAP PO SCH (08:43)
[2022-01-22] MEDS: Losartan 25 MG TAB PO SCH (08:43)
[2022-01-22] MEDS: Timolol 0.5% Ophth Soln 5 ml Bottle EA EYE SCH (08:44)
[2022-01-22] MEDS: Brimonidine Tartrate 0.2% Ophth Soln 5 ml Bottle R EYE SCH (08:44)
== END 2022-01-22 11:36 | disposition home or self-care (01) | DRG 552 ==
LOC: ERS 10:11 → ERHOLD 13:17 → T4-B 19:28
PROVIDERS: ADMIT Hospitalist; ATTEND Hospitalist
DX: M48.062 Spinal stenosis, lumbar region with neurogenic claudication (principal); I50.32 Chronic diastolic (congestive) heart failure; E87.1 Hypo-osmolality and hyponatremia; Z20.822 Contact with and (suspected) exposure to COVID-19; G89.29 Other chronic pain; G62.9 Polyneuropathy, unspecified; E78.5 Hyperlipidemia, unspecified; H35.30 Unspecified macular degeneration; M19.90 Unspecified osteoarthritis, unspecified site; I11.0 Hypertensive heart disease with heart failure; H40.9 Unspecified glaucoma; H91.90 Unspecified hearing loss, unspecified ear; G54.4 Lumbosacral root disorders, not elsewhere classified; Z98.890 Other specified postprocedural states; Z98.1 Arthrodesis status; Z98.42 Cataract extraction status, left eye; Z98.41 Cataract extraction status, right eye; Z90.89 Acquired absence of other organs; Z87.891 Personal history of nicotine dependence; Z79.899 Other long term (current) drug therapy; Z79.82 Long term (current) use of aspirin
CPT/HCPCS: 36415; 72100; 72148; 80048; 80053; 82550; 83690; 83735; 83880; 84484; 85025; 85610; 85730; 93005; 96372; 96374; 96375; 99283; J0360; J1885; J2060; J2270; J2405; Q0162; U0003; U0005

== ENCOUNTER 2022-01-24 10:49 | Outpatient (CLI) | payer MEDICARE, BC | END 2022-01-24 10:50 | disposition home or self-care (01) | LOC: LABBT 10:49 | PROVIDERS: ATTEND Neurological Surgery | DX: Z20.822 Contact with and (suspected) exposure to COVID-19 (principal) | CPT/HCPCS: 87811 ==

== ENCOUNTER 2022-01-29 07:03 | Inpatient (IN) | payer MEDICARE, BC ==
[2022-01-24 14:20] VITALS: BMI 32.8
[2022-01-29] MEDS ORDERED: fentaNYL Citrate/PF 100 MCG/2 ML SYRINGE ONE ×2 (08:40→10:51)
[2022-01-29] MEDS ORDERED: diphenhydrAMINE 50 MG/ML VIAL IVP PRN (08:43)
[2022-01-29] MEDS ORDERED: Acetaminophen 325 MG TAB PO PRN (08:43)
[2022-01-29] MEDS ORDERED: Promethazine 25 MG TAB PO PRN (08:43)
[2022-01-29] MEDS ORDERED: Ondansetron PF 4 MG/2 ML Vial IVP PRN (08:43)
[2022-01-29] MEDS ORDERED: Milk Of Magnesia 30 ML UDCUP PO PRN (08:43)
[2022-01-29] MEDS ORDERED: Mag-Al 1200 mg/1200 mg/30 ML UDCUP PO PRN (08:43)
[2022-01-29] MEDS ORDERED: CEFAZOLIN 2 GM VIAL ONE (08:51)
[2022-01-29] MEDS ORDERED: Sodium Chloride 0.9% 100 ML ONE (08:51)
[2022-01-29] MEDS ORDERED: PROPOFOL 200 MG/20 ML VIAL ONE (09:01)
[2022-01-29] MEDS ORDERED: Lidocaine 1% PF 5 ML VIAL ONE (09:01)
[2022-01-29] MEDS ORDERED: Rocuronium Bromide 10 MG/ML (10ML VIAL) ONE (09:01)
[2022-01-29] MEDS ORDERED: Dexamethasone 20 MG/5 ML VIAL ONE (09:01)
[2022-01-29] MEDS ORDERED: Glycopyrrolate 0.2 MG/ML 5 ML SYRINGE ONE (09:01)
[2022-01-29] MEDS ORDERED: Ondansetron PF 4 MG/2 ML Vial ONE (09:01)
[2022-01-29] MEDS ORDERED: ePHEDrine 50 MG/ML VIAL ONE (09:01)
[2022-01-29] MEDS ORDERED: Fentanyl 100 MCG/2 ML VIAL ONE (12:00)
[2022-01-29] MEDS: tiZANidine HCl 4 MG TAB PO PRN (13:12)
[2022-01-29] MEDS: Morphine 2 MG/ML VIAL SLOW IVP PRN (13:12)
[2022-01-29] MEDS: Acetaminophen/Codeine 30-300mg Tablet PO PRN ×2 (16:06→20:23)
[2022-01-29] MEDS: CEFAZOLIN 2 GM in Sodium Chloride 0.9% 100 ML IVPB SCH (16:07)
[2022-01-29] MEDS: Latanoprost 0.005% Ophth Soln 2.5 ml Bottle R EYE SCH (20:24)
[2022-01-29] MEDS: Timolol 0.5% Ophth Soln 5 ml Bottle EA EYE SCH (20:25)
[2022-01-29] MEDS ORDERED: Latanoprost 0.005% Ophth Soln 2.5 ml Bottle R EYE SCH (21:00)
[2022-01-29] MEDS ORDERED: Timolol 0.5% Ophth Soln 5 ml Bottle EA EYE SCH (21:00)
[2022-01-30] MEDS: CEFAZOLIN 2 GM in Sodium Chloride 0.9% 100 ML IVPB SCH (00:48)
[2022-01-30] MEDS: Tamsulosin HCl 0.4 MG CAP PO SCH (04:58)
[2022-01-30] MEDS: Acetaminophen/Codeine 30-300mg Tablet PO PRN ×4 (04:58→20:09)
[2022-01-30 05:24] LABS: #Lymphocytes 0.8 thou/uL (1.20-3.40); #Monocytes 0.7 thou/uL (0.11-0.59); #Neutrophils 9.9 thou/uL (1.40-6.50); %Basophils 0.1 % (0.0-1.0); %Eosinophils 0.1 % (0.0-10.0); %Lymphocytes 6.8 % (21.0-51.0); %Monocytes 6.2 % (0.0-10.0); %Neutrophils 86.9 % (42.0-75.0); Mean Corpuscular HGB CONC 34.1 g/dL (32.0-36.0); Mean Corpuscular Hemoglobin 32.4 pg (27.0-31.0); Mean Corpuscular Volume 95.1 fL (78.0-98.0); Mean Platelet Volume 6.7 fL (7.4-10.4); Platelet Count 128 thou/uL (130-400); RBC Distribution Width 12.4 % (11.5-14.5); Red Blood Cell (RBC) Count 3.72 mill/uL (4.70-6.10); White Blood Cell (WBC) Count 11.4 thou/uL (4.8-10.8)
[2022-01-30 05:46] LABS: Anion Gap 11 mmol/L (10-20); BUN (Urea Nitrogen) 15 mg/dL (8.4-25.7); Calc. Creatinine Clearance 103 mL/min (70-130); Calcium 8.9 mg/dL (7.8-10.44); Carbon Dioxide 26 mmol/L (23-31); Chloride 100 mmol/L (98-107); Estimated GFR 90; Glucose 128 mg/dL (83-110); Potassium 4.4 mmol/L (3.5-5.1); Sodium 133 mmol/L (136-145)
[2022-01-30] MEDS ORDERED: hydrALAZINE 20 MG/ML VIAL SLOW IVP PRN (08:54)
[2022-01-30] MEDS ORDERED: Brimonidine Tartrate 0.2% Ophth Soln 5 ml Bottle R EYE SCH (09:00)
[2022-01-30] MEDS: Spironolactone 25 MG TAB PO SCH (09:24)
[2022-01-30] MEDS: Cephalexin 250 MG CAP PO SCH ×4 (09:24→20:09)
[2022-01-30] MEDS: Losartan 25 MG TAB PO SCH (09:24)
[2022-01-30] MEDS: Timolol 0.5% Ophth Soln 5 ml Bottle EA EYE SCH ×2 (09:26→20:10)
[2022-01-30] MEDS: Morphine 2 MG/ML VIAL SLOW IVP PRN (09:30)
[2022-01-30] MEDS: Brimonidine Tartrate 0.2% Ophth Soln 5 ml Bottle R EYE SCH (11:45)
[2022-01-30] MEDS: tiZANidine HCl 4 MG TAB PO PRN (12:53)
[2022-01-30 17:02] LABS: Bacteria/HPF None Seen HPF (None Seen); Bilirubin Negative (Negative); Blood, Urine Negative (Negative); Clarity Clear (Clear); Glucose, Urine (Dipstick) Normal (Negative); Ketone, Urine Negative (Negative); Leukocyte Negative Leu/uL (Negative); Nitrite Negative (Negative); Protein, Urine (Dipstick) Negative (Neg-Trace); RBC/HPF 0-3 HPF (0-3); Specific Gravity, Urine 1.013 (1.002-1.036); Squamous Epithelial None Seen HPF (0-3); Urobilinogen Normal mg/dL (Less than 2); WBC/HPF 0-3 HPF (0-3); pH, Urine 6.5 (5.0-9.0)
[2022-01-30 17:03] LABS: Urine Culture Reflex No No
[2022-01-30] MEDS: Latanoprost 0.005% Ophth Soln 2.5 ml Bottle R EYE SCH (20:10)
[2022-01-31] MEDS: Acetaminophen/Codeine 30-300mg Tablet PO PRN ×4 (05:09→20:29)
[2022-01-31] MEDS: Tamsulosin HCl 0.4 MG CAP PO SCH (05:09)
[2022-01-31 05:28] LABS: #Eosinphils 0.2 thou/uL (0.0-0.7); #Lymphocytes 1.2 thou/uL (1.20-3.40); #Monocytes 0.8 thou/uL (0.11-0.59); %Basophils 0.5 % (0.0-1.0); %Eosinophils 1.8 % (0.0-10.0); %Lymphocytes 11.7 % (21.0-51.0); %Neutrophils 78.1 % (42.0-75.0); Hemoglobin 12.2 g/dL (14.0-18.0); Mean Corpuscular HGB CONC 33.1 g/dL (32.0-36.0); Mean Corpuscular Volume 96.8 fL (78.0-98.0); Mean Platelet Volume 6.9 fL (7.4-10.4); Platelet Count 124 thou/uL (130-400); RBC Distribution Width 12.6 % (11.5-14.5); White Blood Cell (WBC) Count 10.3 thou/uL (4.8-10.8)
[2022-01-31 06:39] LABS: Anion Gap 11 mmol/L (10-20); BUN (Urea Nitrogen) 13 mg/dL (8.4-25.7); Calc. Creatinine Clearance 101 mL/min (70-130); Calcium 9.2 mg/dL (7.8-10.44); Carbon Dioxide 27 mmol/L (23-31); Chloride 100 mmol/L (98-107); Estimated GFR 90; Glucose 112 mg/dL (83-110); Potassium 3.8 mmol/L (3.5-5.1); Sodium 134 mmol/L (136-145)
[2022-01-31] MEDS: Morphine 2 MG/ML VIAL SLOW IVP PRN (06:42)
[2022-01-31] MEDS: Timolol 0.5% Ophth Soln 5 ml Bottle EA EYE SCH ×2 (08:29→20:29)
[2022-01-31] MEDS: Brimonidine Tartrate 0.2% Ophth Soln 5 ml Bottle R EYE SCH (08:30)
[2022-01-31] MEDS: Spironolactone 25 MG TAB PO SCH (08:31)
[2022-01-31] MEDS: Cephalexin 250 MG CAP PO SCH ×4 (08:31→20:29)
[2022-01-31] MEDS: Losartan 25 MG TAB PO SCH (08:31)
[2022-01-31] MEDS ORDERED: Losartan 25 MG TAB PO SCH ×2 (10:15)
[2022-01-31] MEDS: traMADol HCl 50 MG TAB PO PRN (17:56)
[2022-01-31] MEDS: Latanoprost 0.005% Ophth Soln 2.5 ml Bottle R EYE SCH (20:29)
[2022-02-01] MEDS: Acetaminophen/Codeine 30-300mg Tablet PO PRN ×3 (05:19→14:36)
[2022-02-01] MEDS: Tamsulosin HCl 0.4 MG CAP PO SCH (05:19)
[2022-02-01] MEDS ORDERED: diphenhydrAMINE 25 MG CAP PO PRN (08:54)
[2022-02-01] MEDS ORDERED: Clindamycin 150 MG CAP PO SCH (09:00)
[2022-02-01] MEDS ORDERED: Losartan 25 MG TAB PO SCH (09:00)
[2022-02-01] MEDS: Brimonidine Tartrate 0.2% Ophth Soln 5 ml Bottle R EYE SCH (09:12)
[2022-02-01] MEDS: Spironolactone 25 MG TAB PO SCH (09:14)
[2022-02-01] MEDS: Timolol 0.5% Ophth Soln 5 ml Bottle EA EYE SCH (09:18)
[2022-02-01] MEDS: Losartan 25 MG TAB PO SCH ×2 (09:48→11:18)
[2022-02-01] MEDS: Morphine 2 MG/ML VIAL SLOW IVP PRN (12:27)
[2022-02-01 16:15] VITALS: BP 169/75; TEMP 97.7
[2022-02-01] MEDS: traMADol HCl 50 MG TAB PO PRN (17:51)
[2022-02-02] MEDS ORDERED: Losartan 25 MG TAB PO SCH (09:00)
== END 2022-02-01 18:20 | DRG 460 ==
LOC: SDC 07:03 → INTOOBSV 08:43 → SURG A 08:43 → OBSVTOIN 01-31 08:01
PROVIDERS: ADMIT Neurological Surgery; ATTEND Neurological Surgery
PROC: 0SG10K1 Fusion of 2 or more Lumbar Vertebral Joints with Nonautologous Tissue Substitute, Posterior Approach, Posterior Column, Open Approach (ICD-10-PCS; principal; 2022-01-29)
PROC: 01NB0ZZ Release Lumbar Nerve, Open Approach (ICD-10-PCS; 2022-01-29)
DX: M48.062 Spinal stenosis, lumbar region with neurogenic claudication (principal); I50.32 Chronic diastolic (congestive) heart failure; Z20.822 Contact with and (suspected) exposure to COVID-19; H35.30 Unspecified macular degeneration; I11.0 Hypertensive heart disease with heart failure; E78.5 Hyperlipidemia, unspecified; H40.9 Unspecified glaucoma; H26.9 Unspecified cataract; N40.0 Benign prostatic hyperplasia without lower urinary tract symptoms; Z90.49 Acquired absence of other specified parts of digestive tract; Z98.890 Other specified postprocedural states; Z79.899 Other long term (current) drug therapy; L27.0 Generalized skin eruption due to drugs and medicaments taken internally; T36.1X5A Adverse effect of cephalosporins and other beta-lactam antibiotics, initial encounter
CPT/HCPCS: 36415; 51701; 76000; 80048; 81001; 85025; 96374; 96376; C1713; G0378; J0360; J0690; J1100; J1200; J2270; J2405; J2704; J2710; J3010; J3370; J3490

== ENCOUNTER 2022-02-26 12:27 | Outpatient (CLI) | payer MEDICARE, BC | END 2022-02-26 12:28 | disposition home or self-care (01) | LOC: TBSIIMAG 12:27 | PROVIDERS: ATTEND Neurological Surgery | DX: M48.062 Spinal stenosis, lumbar region with neurogenic claudication (principal); M47.816 Spondylosis without myelopathy or radiculopathy, lumbar region | CPT/HCPCS: 72100 ==

== ENCOUNTER 2022-04-09 13:12 | Inpatient (IN) | payer MEDICARE, BC ==
[2022-04-09 14:11] LABS: #Basophils 0.1 thou/uL (0.0-0.2); #Eosinphils 0.5 thou/uL (0.0-0.7); #Lymphocytes 1.2 thou/uL (1.20-3.40); #Monocytes 0.6 thou/uL (0.11-0.59); #Neutrophils 3.5 thou/uL (1.40-6.50); %Basophils 0.9 % (0.0-1.0); %Eosinophils 9.3 % (0.0-10.0); %Lymphocytes 20.3 % (21.0-51.0); %Monocytes 9.9 % (0.0-10.0); %Neutrophils 59.7 % (42.0-75.0); Hemoglobin 10.4 g/dL (14.0-18.0); Mean Corpuscular HGB CONC 32.8 g/dL (32.0-36.0); Mean Corpuscular Hemoglobin 30.6 pg (27.0-31.0); Mean Corpuscular Volume 93.2 fL (78.0-98.0); Mean Platelet Volume 6.7 fL (7.4-10.4); Platelet Count 133 thou/uL (130-400); RBC Distribution Width 13.3 % (11.5-14.5); Red Blood Cell (RBC) Count 3.39 mill/uL (4.70-6.10); White Blood Cell (WBC) Count 5.9 thou/uL (4.8-10.8)
[2022-04-09 14:28] LABS: ALT (SGPT) 7 U/L (8-55); AST (SGOT) 16 U/L (5-34); Albumin 3.2 g/dL (3.4-4.8); Alkaline Phosphatase 62 U/L (40-110); Anion Gap 13 mmol/L (10-20); BUN (Urea Nitrogen) 22 mg/dL (8.4-25.7); Bilirubin, Total 0.4 mg/dL (0.2-1.2); CK (CPK) 52 U/L (30-200); Calc. Creatinine Clearance 0 mL/min (70-130); Calcium 8.7 mg/dL (7.8-10.44); Carbon Dioxide 22 mmol/L (23-31); Chloride 107 mmol/L (98-107); Estimated GFR 82; Glucose 114 mg/dL (83-110); Magnesium 1.9 mg/dL (1.6-2.6); Potassium 4.8 mmol/L (3.5-5.1); Protein, Total 5.2 g/dL (5.8-8.1); Sodium 137 mmol/L (136-145)
[2022-04-09] MEDS ORDERED: Ondansetron ODT 4 MG TAB PO PRN (16:59)
[2022-04-09] MEDS ORDERED: Acetaminophen 650 MG Suppository PR PRN (16:59)
[2022-04-09] MEDS ORDERED: Senokot S 8.6-50 MG TAB PO PRN (16:59)
[2022-04-09] MEDS ORDERED: Acetaminophen 325 MG TAB PO PRN (16:59)
[2022-04-09] MEDS ORDERED: Ondansetron PF 4 MG/2 ML Vial IVP PRN (16:59)
[2022-04-09] MEDS ORDERED: Aspirin 81 mg Enteric Coated Tablet PO SCH (17:15)
[2022-04-09 17:42] LABS: Bacteria/HPF 2+ HPF (None Seen); Bilirubin Negative (Negative); Blood, Urine Trace (Negative); Glucose, Urine (Dipstick) Normal (Negative); Ketone, Urine Negative (Negative); Leukocyte 500 Leu/uL (Negative); Nitrite 2+ (Negative); Protein, Urine (Dipstick) 10 mg/dL (Neg-Trace); RBC/HPF 0-3 HPF (0-3); Specific Gravity, Urine 1.016 (1.002-1.036); Squamous Epithelial None Seen HPF (0-3); Urobilinogen Normal mg/dL (Less than 2); WBC/HPF Greater than 50 HPF (0-3)
[2022-04-09 17:43] LABS: Clarity Cloudy (Clear)
[2022-04-09 20:29] VITALS: BMI 32.4
[2022-04-09] MEDS: cefTRIAXone\\ROCEPHIN 1 GM in Sodium Chloride 0.9% 100 ML IVPB SCH (20:50)
[2022-04-09] MEDS: Sodium Chloride 0.9% 1,000 ML IV SCH (20:51)
[2022-04-09] MEDS: Atorvastatin Calcium 40 MG TAB PO SCH (20:51)
[2022-04-09] MEDS: Latanoprost 0.005% Ophth Soln 2.5 ml Bottle R EYE SCH (21:46)
[2022-04-10 05:26] LABS: #Eosinphils 0.6 thou/uL (0.0-0.7); #Lymphocytes 1.1 thou/uL (1.20-3.40); #Monocytes 0.6 thou/uL (0.11-0.59); #Neutrophils 4.2 thou/uL (1.40-6.50); %Basophils 0.4 % (0.0-1.0); %Eosinophils 9.6 % (0.0-10.0); %Neutrophils 63.9 % (42.0-75.0); Mean Corpuscular Hemoglobin 30.5 pg (27.0-31.0); Mean Corpuscular Volume 92.3 fL (78.0-98.0); Mean Platelet Volume 6.7 fL (7.4-10.4); Platelet Count 131 thou/uL (130-400); RBC Distribution Width 13.2 % (11.5-14.5); Red Blood Cell (RBC) Count 3.28 mill/uL (4.70-6.10); White Blood Cell (WBC) Count 6.6 thou/uL (4.8-10.8)
[2022-04-10 05:36] LABS: Hemoglobin A1c 4.8 % (4.0-6.0)
[2022-04-10 05:52] LABS: ALT (SGPT) 10 U/L (8-55); AST (SGOT) 21 U/L (5-34); Albumin 2.9 g/dL (3.4-4.8); Alkaline Phosphatase 59 U/L (40-110); Anion Gap 10 mmol/L (10-20); BUN (Urea Nitrogen) 17 mg/dL (8.4-25.7); Bilirubin, Total 0.4 mg/dL (0.2-1.2); Calc. Creatinine Clearance 105 mL/min (70-130); Calcium 8.3 mg/dL (7.8-10.44); Carbon Dioxide 22 mmol/L (23-31); Cardiac Risk 4.7 (Less than 4.5); Chloride 107 mmol/L (98-107); Cholesterol 149 mg/dl (< 200 Desired); Estimated GFR 90; Globulin 2.2 g/dL (2.4-3.5); Glucose 91 mg/dL (83-110); HDL Cholesterol 32 mg/dL (>60 Neg Risk); LDL Cholesterol, Calculated 97 mg/dL; Potassium 4.1 mmol/L (3.5-5.1); Protein, Total 5.1 g/dL (5.8-8.1); Sodium 135 mmol/L (136-145); Triglycerides 99 mg/dL (Less than 150)
[2022-04-10] MEDS: Enoxaparin Sodium 40 MG/0.4 ML SYRINGE SC SCH (09:31)
[2022-04-10] MEDS: Aspirin 81 mg Enteric Coated Tablet PO SCH (09:32)
[2022-04-10] MEDS: Sodium Chloride 0.9% 1,000 ML IV SCH (09:41)
[2022-04-10] MEDS: Brimonidine Tartrate 0.2% Ophth Soln 5 ml Bottle R EYE SCH (14:23)
[2022-04-10] MEDS: Gabapentin 300 MG CAP PO SCH ×2 (15:45→21:37)
[2022-04-10] MEDS: cefTRIAXone\\ROCEPHIN 1 GM in Sodium Chloride 0.9% 100 ML IVPB SCH (18:03)
[2022-04-10] MEDS: Latanoprost 0.005% Ophth Soln 2.5 ml Bottle R EYE SCH (21:37)
[2022-04-10] MEDS: Atorvastatin Calcium 40 MG TAB PO SCH (21:37)
[2022-04-11 05:03] LABS: #Eosinphils 0.4 thou/uL (0.0-0.7); #Lymphocytes 1.3 thou/uL (1.20-3.40); #Monocytes 0.7 thou/uL (0.11-0.59); #Neutrophils 3.8 thou/uL (1.40-6.50); %Basophils 0.1 % (0.0-1.0); %Eosinophils 7.2 % (0.0-10.0); %Lymphocytes 20.6 % (21.0-51.0); %Monocytes 11.5 % (0.0-10.0); %Neutrophils 60.7 % (42.0-75.0); Hemoglobin 10.7 g/dL (14.0-18.0); Mean Corpuscular HGB CONC 33.4 g/dL (32.0-36.0); Mean Corpuscular Hemoglobin 30.7 pg (27.0-31.0); Mean Platelet Volume 7.1 fL (7.4-10.4); Platelet Count 133 thou/uL (130-400); RBC Distribution Width 13.3 % (11.5-14.5); Red Blood Cell (RBC) Count 3.49 mill/uL (4.70-6.10); White Blood Cell (WBC) Count 6.3 thou/uL (4.8-10.8)
[2022-04-11 05:14] LABS: Anion Gap 12 mmol/L (10-20); BUN (Urea Nitrogen) 10 mg/dL (8.4-25.7); Calc. Creatinine Clearance 111 mL/min (70-130); Calcium 8.6 mg/dL (7.8-10.44); Carbon Dioxide 22 mmol/L (23-31); Chloride 108 mmol/L (98-107); Estimated GFR 92; Glucose 104 mg/dL (83-110); Potassium 3.8 mmol/L (3.5-5.1); Sodium 138 mmol/L (136-145)
[2022-04-11] MEDS ORDERED: Tamsulosin HCl 0.4 MG CAP PO SCH (09:00)
[2022-04-11] MEDS ORDERED: Losartan 25 MG TAB PO SCH (09:00)
[2022-04-11] MEDS: Gabapentin 300 MG CAP PO SCH ×2 (10:21→15:16)
[2022-04-11] MEDS: Enoxaparin Sodium 40 MG/0.4 ML SYRINGE SC SCH (10:22)
[2022-04-11] MEDS: Aspirin 81 mg Enteric Coated Tablet PO SCH (10:22)
[2022-04-11] MEDS: Brimonidine Tartrate 0.2% Ophth Soln 5 ml Bottle R EYE SCH (10:23)
[2022-04-11 12:05] VITALS: TEMP 97.6
[2022-04-11 16:48] VITALS: BP 166/71
== END 2022-04-11 16:54 | disposition home health service (06) | DRG 690 ==
LOC: SUATTDRO 13:12 → ERS 13:12 → NEURO 16:59 → OBSVTOIN 04-10 15:39
PROVIDERS: ADMIT Internal Medicine; ATTEND Internal Medicine
DX: N30.00 Acute cystitis without hematuria (principal); G45.9 Transient cerebral ischemic attack, unspecified; Z66 Do not resuscitate; Z20.822 Contact with and (suspected) exposure to COVID-19; I11.0 Hypertensive heart disease with heart failure; I50.9 Heart failure, unspecified; H40.9 Unspecified glaucoma; M48.061 Spinal stenosis, lumbar region without neurogenic claudication; H35.30 Unspecified macular degeneration; G62.9 Polyneuropathy, unspecified; G93.89 Other specified disorders of brain; E78.5 Hyperlipidemia, unspecified; R00.1 Bradycardia, unspecified; Z79.899 Other long term (current) drug therapy; Z79.82 Long term (current) use of aspirin; Z87.440 Personal history of urinary (tract) infections; Z90.09 Acquired absence of other part of head and neck; Z87.891 Personal history of nicotine dependence; Z88.5 Allergy status to narcotic agent
CPT/HCPCS: 36415; 70450; 70551; 71045; 80048; 80053; 80061; 81003; 81015; 82550; 83036; 83735; 84443; 84484; 85025; 93005; 93306; 93880; 94760; 95706; 95819; 95957; J0696; J1650; J3490; J7050; U0003; U0005

== ENCOUNTER 2022-05-20 14:25 | Outpatient (CLI) | payer MEDICARE, BC | END 2022-05-20 14:26 | disposition home or self-care (01) | LOC: TBSIIMAG 14:25 | PROVIDERS: ATTEND Neurological Surgery | DX: M48.062 Spinal stenosis, lumbar region with neurogenic claudication (principal); M47.816 Spondylosis without myelopathy or radiculopathy, lumbar region; Z98.1 Arthrodesis status | CPT/HCPCS: 72100 ==

== ENCOUNTER 2023-04-09 13:56 | Inpatient (IN) | payer MEDICARE, BC ==
[2023-04-09] MEDS ORDERED: Aspirin Chewable 81 MG TAB ONE (14:23)
[2023-04-09 14:32] LABS: #Basophils 0.1 thou/uL (0.0-0.2); #Eosinphils 0.2 thou/uL (0.0-0.7); #Monocytes 0.7 thou/uL (0.11-0.59); #Neutrophils 4.8 thou/uL (1.40-6.50); %Basophils 0.7 % (0.0-1.0); %Eosinophils 2.3 % (0.0-10.0); %Monocytes 10.3 % (0.0-10.0); %Neutrophils 66.9 % (42.0-75.0); Hematocrit 37.3 % (42.0-52.0); Hemoglobin 12.3 g/dL (14.0-18.0); Mean Corpuscular Hemoglobin 32.2 pg (27.0-31.0); Mean Corpuscular Volume 97.6 fl (78.0-98.0); Mean Platelet Volume 8.7 fL (7.4-10.4); Red Blood Cell (RBC) Count 3.82 mill/uL (4.70-6.10); White Blood Cell (WBC) Count 7.1 10x3/uL (4.8-10.8)
[2023-04-09 14:38] LABS: Platelet Count 116 10x3/uL (130-400)
[2023-04-09 14:56] LABS: ALT (SGPT) 21 U/L (8-55); AST (SGOT) 31 U/L (5-34); Albumin 3.7 g/dL (3.4-4.8); Alkaline Phosphatase 103 U/L (40-110); Anion Gap 10 mmol/L (10-20); BUN (Urea Nitrogen) 19 mg/dL (8.4-25.7); Bilirubin, Total 0.4 mg/dL (0.2-1.2); Calcium 9.6 mg/dL (7.8-10.44); Carbon Dioxide 29 mmol/L (23-31); Chloride 101 mmol/L (98-107); Globulin 2.6 g/dL (2.4-3.5); Glucose 108 mg/dL (83-110); Protein, Total 6.3 g/dL (5.8-8.1); Sodium 136 mmol/L (136-145)
[2023-04-09 14:58] LABS: Bilirubin Negative (Negative); Blood, Urine Negative (Negative); CAUTI Indications for Culture Alt mental st,lethar; Clarity Clear (Clear); Glucose, Urine (Dipstick) Normal (Negative); Ketone, Urine Negative (Negative); Leukocyte 500 Leu/uL (Negative); Nitrite Negative (Negative); Protein, Urine (Dipstick) Negative (Neg-Trace); RBC/HPF 0-3 HPF (0-3); Specific Gravity, Urine 1.017 (1.002-1.036); Squamous Epithelial None Seen HPF (0-3)
[2023-04-09 15:00] LABS: Troponin I 0.025 ng/mL (< 0.028)
[2023-04-09 15:02] LABS: Bacteria/HPF 2+ HPF (None Seen); WBC/HPF 21-50 HPF (0-3)
[2023-04-09 15:03] LABS: Urine Culture Reflex Yes Yes
[2023-04-09 15:09] LABS: Calc. Creatinine Clearance 0 mL/min (70-130); Estimated GFR 67
[2023-04-09] MEDS ORDERED: cefTRIAXone (ROCEPHIN) 2 GM VIAL ONE (15:42)
[2023-04-09] MEDS ORDERED: Acetaminophen 325 MG TAB PO PRN ×2 (15:45→20:26)
[2023-04-09] MEDS ORDERED: Sodium Chloride 0.9% 1,000 ML IV SCH ×2 (15:45→20:30)
[2023-04-09] MEDS ORDERED: Ondansetron PF 4 MG/2 ML Vial IVP PRN ×2 (15:45→20:27)
[2023-04-09] MEDS ORDERED: Ondansetron ODT 4 MG TAB SL PRN ×2 (15:45→20:28)
[2023-04-09] MEDS: Timolol 0.5% Ophth Soln 5 ml Bottle EA EYE SCH (20:54)
[2023-04-09] MEDS ORDERED: Timolol 0.5% Ophth Soln 5 ml Bottle EA EYE SCH (21:00)
[2023-04-10] MEDS ORDERED: Ondansetron PF 4 MG/2 ML Vial IVP PRN (02:12)
[2023-04-10] MEDS ORDERED: Bisacodyl 5 MG TAB PO PRN (02:12)
[2023-04-10] MEDS ORDERED: Nitroglycerin 0.4 MG TAB (25 Tab Bottle) SL PRN (02:12)
[2023-04-10] MEDS ORDERED: Acetaminophen 325 MG TAB PO PRN (02:12)
[2023-04-10] MEDS ORDERED: Nitrofurantoin Monohyd/M-Cryst 100 MG CAP PO SCH ×2 (02:30→09:00)
[2023-04-10 04:12] LABS: #Basophils 0.1 thou/uL (0.0-0.2); #Eosinphils 0.2 thou/uL (0.0-0.7); #Monocytes 0.6 thou/uL (0.11-0.59); #Neutrophils 3.9 thou/uL (1.40-6.50); %Basophils 0.8 % (0.0-1.0); %Lymphocytes 20.3 % (21.0-51.0); %Monocytes 10.1 % (0.0-10.0); %Neutrophils 64.6 % (42.0-75.0); Hematocrit 35.1 % (42.0-52.0); Hemoglobin 11.7 g/dL (14.0-18.0); Mean Corpuscular HGB CONC 33.3 g/dL (32.0-36.0); Mean Corpuscular Hemoglobin 32.4 pg (27.0-31.0); Mean Corpuscular Volume 97.2 fl (78.0-98.0); Mean Platelet Volume 9.1 fL (7.4-10.4); Platelet Count 101 10x3/uL (130-400); RBC Distribution Width 13.8 % (11.5-14.5); Red Blood Cell (RBC) Count 3.61 mill/uL (4.70-6.10)
[2023-04-10 04:34] LABS: ALT (SGPT) 17 U/L (8-55); AST (SGOT) 27 U/L (5-34); Albumin 3.2 g/dL (3.4-4.8); Alkaline Phosphatase 89 U/L (40-110); Anion Gap 11 mmol/L (10-20); BUN (Urea Nitrogen) 18 mg/dL (8.4-25.7); Bilirubin, Total 0.4 mg/dL (0.2-1.2); Calc. Creatinine Clearance 84 mL/min (70-130); Calcium 8.8 mg/dL (7.8-10.44); Carbon Dioxide 25 mmol/L (23-31); Chloride 105 mmol/L (98-107); Estimated GFR 85; Globulin 2.5 g/dL (2.4-3.5); Glucose 108 mg/dL (83-110); Potassium 4.1 mmol/L (3.5-5.1); Protein, Total 5.7 g/dL (5.8-8.1); Sodium 137 mmol/L (136-145)
[2023-04-10] MEDS: Furosemide 40 MG/4 ML VIAL SLOW IVP SCH ×2 (05:06→13:34)
[2023-04-10] MEDS: Losartan 25 MG TAB PO SCH (08:45)
[2023-04-10] MEDS: Thiamine 100 MG TAB PO SCH (08:45)
[2023-04-10] MEDS: Spironolactone 25 MG TAB PO SCH (08:45)
[2023-04-10] MEDS: Ferrous Sulfate 325 MG TAB PO SCH (08:46)
[2023-04-10] MEDS: Brimonidine Tartrate 0.2% Ophth Soln 5 ml Bottle R EYE SCH (08:48)
[2023-04-10 08:49] LABS: Troponin I 0.024 ng/mL (< 0.028)
[2023-04-10] MEDS: Timolol 0.5% Ophth Soln 5 ml Bottle EA EYE SCH ×2 (08:49→20:49)
[2023-04-10] MEDS: Aspirin Chewable 81 MG TAB PO SCH (08:56)
[2023-04-10] MEDS ORDERED: Torsemide 20 MG TAB PO SCH ×2 (09:00)
[2023-04-10] MEDS ORDERED: Aspirin 81 mg Enteric Coated Tablet PO SCH (09:00)
[2023-04-10] MEDS ORDERED: Losartan 25 MG TAB PO SCH (09:00)
[2023-04-10] MEDS ORDERED: Brimonidine Tartrate 0.2% Ophth Soln 5 ml Bottle R EYE SCH (09:00)
[2023-04-10] MEDS ORDERED: Spironolactone 25 MG TAB PO SCH (09:00)
[2023-04-10] MEDS: AMPicillin 1 GM in Sodium Chloride 0.9% 100 ML IVPB SCH ×2 (18:46→23:44)
[2023-04-11] MEDS: AMPicillin 1 GM in Sodium Chloride 0.9% 100 ML IVPB SCH ×3 (05:32→17:41)
[2023-04-11 05:35] LABS: #Eosinphils 0.2 thou/uL (0.0-0.7); #Monocytes 0.6 thou/uL (0.11-0.59); #Neutrophils 4.5 thou/uL (1.40-6.50); %Basophils 0.5 % (0.0-1.0); %Eosinophils 2.6 % (0.0-10.0); %Lymphocytes 15.3 % (21.0-51.0); %Monocytes 9.6 % (0.0-10.0); %Neutrophils 70.9 % (42.0-75.0); Hematocrit 37.7 % (42.0-52.0); Hemoglobin 12.4 g/dL (14.0-18.0); Mean Corpuscular HGB CONC 32.9 g/dL (32.0-36.0); Mean Corpuscular Hemoglobin 32.1 pg (27.0-31.0); Mean Corpuscular Volume 97.7 fl (78.0-98.0); Mean Platelet Volume 8.8 fL (7.4-10.4); Platelet Count 110 10x3/uL (130-400); RBC Distribution Width 13.7 % (11.5-14.5); Red Blood Cell (RBC) Count 3.86 mill/uL (4.70-6.10); White Blood Cell (WBC) Count 6.3 10x3/uL (4.8-10.8)
[2023-04-11 06:00] LABS: Anion Gap 11 mmol/L (10-20); BUN (Urea Nitrogen) 17 mg/dL (8.4-25.7); Calc. Creatinine Clearance 79 mL/min (70-130); Calcium 9.1 mg/dL (7.8-10.44); Carbon Dioxide 29 mmol/L (23-31); Chloride 100 mmol/L (98-107); Estimated GFR 80; Glucose 93 mg/dL (83-110); Potassium 3.5 mmol/L (3.5-5.1); Sodium 136 mmol/L (136-145)
[2023-04-11] MEDS: Brimonidine Tartrate 0.2% Ophth Soln 5 ml Bottle R EYE SCH (08:37)
[2023-04-11] MEDS: Timolol 0.5% Ophth Soln 5 ml Bottle EA EYE SCH ×2 (08:38→20:55)
[2023-04-11] MEDS: Spironolactone 25 MG TAB PO SCH (08:39)
[2023-04-11] MEDS: Losartan 25 MG TAB PO SCH (08:39)
[2023-04-11] MEDS: Thiamine 100 MG TAB PO SCH (08:39)
[2023-04-11] MEDS: Aspirin Chewable 81 MG TAB PO SCH (08:39)
[2023-04-11] MEDS: Ferrous Sulfate 325 MG TAB PO SCH (08:39)
[2023-04-11] MEDS ORDERED: Melatonin 3 MG TAB PO PRN (14:15)
[2023-04-12] MEDS: AMPicillin 1 GM in Sodium Chloride 0.9% 100 ML IVPB SCH ×5 (00:38→23:47)
[2023-04-12] MEDS: Aspirin Chewable 81 MG TAB PO SCH (08:19)
[2023-04-12] MEDS: Thiamine 100 MG TAB PO SCH (08:19)
[2023-04-12] MEDS: Ferrous Sulfate 325 MG TAB PO SCH (08:19)
[2023-04-12] MEDS: Spironolactone 25 MG TAB PO SCH (08:19)
[2023-04-12] MEDS: Losartan 25 MG TAB PO SCH (08:19)
[2023-04-12] MEDS: Brimonidine Tartrate 0.2% Ophth Soln 5 ml Bottle R EYE SCH (08:20)
[2023-04-12] MEDS: Timolol 0.5% Ophth Soln 5 ml Bottle EA EYE SCH ×2 (08:20→20:10)
[2023-04-13] MEDS: AMPicillin 1 GM in Sodium Chloride 0.9% 100 ML IVPB SCH (05:28)
[2023-04-13] MEDS ORDERED: Torsemide 20 MG TAB PO SCH (09:00)
[2023-04-13] MEDS ORDERED: Losartan 25 MG TAB PO SCH ×2 (09:30)
[2023-04-13] MEDS: Spironolactone 25 MG TAB PO SCH (10:02)
[2023-04-13] MEDS: Ferrous Sulfate 325 MG TAB PO SCH (10:02)
[2023-04-13] MEDS: Thiamine 100 MG TAB PO SCH (10:02)
[2023-04-13] MEDS: Timolol 0.5% Ophth Soln 5 ml Bottle EA EYE SCH (10:03)
[2023-04-13] MEDS: Aspirin Chewable 81 MG TAB PO SCH (10:03)
[2023-04-13] MEDS: Brimonidine Tartrate 0.2% Ophth Soln 5 ml Bottle R EYE SCH (10:03)
[2023-04-13] MEDS: Losartan 25 MG TAB PO SCH (10:08)
[2023-04-13] MEDS ORDERED: Amlodipine 10 MG TAB PO SCH (10:30)
[2023-04-13 11:49] VITALS: TEMP 97.6
[2023-04-13] MEDS ORDERED: AMOXicillin 250 MG CAP PO SCH (15:00)
[2023-04-13 15:36] VITALS: BP 183/84
[2023-04-14] MEDS ORDERED: Amlodipine 10 MG TAB PO SCH (09:00)
[2023-04-14] MEDS ORDERED: Losartan 25 MG TAB PO SCH (09:00)
== END 2023-04-13 16:21 | disposition home or self-care (01) | DRG 291 ==
LOC: ERS 13:56 → 2NO 15:56 → ERS 16:47 → OBSVTOIN 04-10 13:29
PROVIDERS: ADMIT Internal Medicine; ATTEND Internal Medicine
DX: I11.0 Hypertensive heart disease with heart failure (principal); I50.33 Acute on chronic diastolic (congestive) heart failure; N39.0 Urinary tract infection, site not specified; G89.29 Other chronic pain; G62.9 Polyneuropathy, unspecified; M19.90 Unspecified osteoarthritis, unspecified site; F10.10 Alcohol abuse, uncomplicated; H35.30 Unspecified macular degeneration; B96.20 Unspecified Escherichia coli [E. coli] as the cause of diseases classified elsewhere; I35.0 Nonrheumatic aortic (valve) stenosis; D64.9 Anemia, unspecified; Z88.5 Allergy status to narcotic agent; Z79.899 Other long term (current) drug therapy; Z79.82 Long term (current) use of aspirin; Z98.890 Other specified postprocedural states; Z90.49 Acquired absence of other specified parts of digestive tract
CPT/HCPCS: 36415; 71045; 80048; 80053; 81001; 83880; 84484; 85025; 87077; 87086; 87186; 93005; 93306; 94760; 96365; 96375; 97139; G0378; J0290; J0696; J1650; J1940; J3490; J7050

== ENCOUNTER 2023-04-28 03:13 | Inpatient (IN) | payer MEDICARE, BC ==
[2023-04-28] MEDS ORDERED: Ondansetron PF 4 MG/2 ML Vial ONE (03:47)
[2023-04-28] MEDS ORDERED: Morphine 4 MG/ML VIAL ONE ×2 (03:47→08:59)
[2023-04-28 03:54] LABS: Bacteria/HPF None Seen HPF (None Seen); Bilirubin Negative (Negative); Blood, Urine Negative (Negative); CAUTI Indications for Culture Pelvic or flank pain; Clarity Clear (Clear); Glucose, Urine (Dipstick) Normal (Negative); Ketone, Urine Negative (Negative); Leukocyte Negative Leu/uL (Negative); Nitrite Negative (Negative); Protein, Urine (Dipstick) Negative (Neg-Trace); RBC/HPF None Seen HPF (0-3); Specific Gravity, Urine 1.008 (1.002-1.036); Squamous Epithelial None Seen HPF (0-3); Urobilinogen Normal mg/dL (Less than 2); WBC/HPF 0-3 HPF (0-3); pH, Urine 5.5 (5.0-9.0)
[2023-04-28 03:56] LABS: Urine Culture Reflex No No
[2023-04-28 04:31] LABS: #Basophils 0.1 thou/uL (0.0-0.2); #Eosinphils 0.4 thou/uL (0.0-0.7); #Monocytes 0.7 thou/uL (0.11-0.59); #Neutrophils 9.5 thou/uL (1.40-6.50); %Basophils 0.4 % (0.0-1.0); %Eosinophils 3.1 % (0.0-10.0); %Lymphocytes 8.8 % (21.0-51.0); %Monocytes 5.9 % (0.0-10.0); %Neutrophils 80.9 % (42.0-75.0); Hematocrit 36.5 % (42.0-52.0); Hemoglobin 12.5 g/dL (14.0-18.0); Mean Corpuscular HGB CONC 34.2 g/dL (32.0-36.0); Mean Corpuscular Hemoglobin 32.2 pg (27.0-31.0); Mean Corpuscular Volume 94.1 fl (78.0-98.0); Mean Platelet Volume 9.8 fL (7.4-10.4); Platelet Count 169 10x3/uL (130-400); Red Blood Cell (RBC) Count 3.88 mill/uL (4.70-6.10); White Blood Cell (WBC) Count 11.8 10x3/uL (4.8-10.8)
[2023-04-28 05:28] LABS: Troponin I Less than 0.010 ng/mL (< 0.028)
[2023-04-28 05:35] LABS: Albumin 3.5 g/dL (3.4-4.8); Anion Gap 12 mmol/L (10-20); BUN (Urea Nitrogen) 16 mg/dL (8.4-25.7); Calc. Creatinine Clearance 0 mL/min (70-130); Carbon Dioxide 26 mmol/L (23-31); Chloride 99 mmol/L (98-107); Estimated GFR 71; Potassium 3.8 mmol/L (3.5-5.1); Sodium 133 mmol/L (136-145)
[2023-04-28 05:36] LABS: ALT (SGPT) 25 U/L (8-55); AST (SGOT) 24 U/L (5-34); Alkaline Phosphatase 99 U/L (40-110); Bilirubin, Total 0.3 mg/dL (0.2-1.2); Calcium 9.1 mg/dL (7.6-10.4); Globulin 3.4 g/dL (2.4-3.5); Glucose 87 mg/dL (83-110); Lipase 18 U/L (8-78); Protein, Total 6.9 g/dL (5.8-8.1)
[2023-04-28] MEDS ORDERED: Ondansetron ODT 4 MG TAB PO PRN ×2 (12:09→12:10)
[2023-04-28] MEDS ORDERED: Calcium Carbonate 500 MG ChewTAB PO PRN (12:09)
[2023-04-28] MEDS ORDERED: Ondansetron PF 4 MG/2 ML Vial IVP PRN (12:09)
[2023-04-28] MEDS ORDERED: Lorazepam 1 MG TAB PO PRN (12:10)
[2023-04-28] MEDS ORDERED: Lorazepam 2 MG/ML VIAL IM PRN (12:10)
[2023-04-28] MEDS ORDERED: Electrolyte Replacement Protocol FS SCH (12:15)
[2023-04-28] MEDS ORDERED: Iopamidol-370 76% 500 ML MDV (1 ML CHARGE) ONE (15:07)
[2023-04-28] MEDS: Thiamine HCl 200 MG/2 ML VIAL SLOW IVP SCH (15:33)
[2023-04-28 15:48] VITALS: BMI 29.2
[2023-04-28] MEDS ORDERED: FLU VACC QS2023(65UP)/MF59C/PF 60 MCG/0.5 ML SYRINGE IM ONE (16:15)
[2023-04-28] MEDS ORDERED: traMADol HCl 50 MG TAB PO SCH (16:15)
[2023-04-28] MEDS: Famotidine 20 MG TAB PO SCH (20:15)
[2023-04-29 06:31] LABS: #Eosinphils 0.3 thou/uL (0.0-0.7); #Monocytes 0.6 thou/uL (0.11-0.59); #Neutrophils 5.2 thou/uL (1.40-6.50); %Basophils 0.6 % (0.0-1.0); %Eosinophils 3.7 % (0.0-10.0); %Lymphocytes 14.1 % (21.0-51.0); %Monocytes 7.8 % (0.0-10.0); %Neutrophils 72.4 % (42.0-75.0); Hematocrit 32.8 % (42.0-52.0); Hemoglobin 10.9 g/dL (14.0-18.0); Mean Corpuscular HGB CONC 33.2 g/dL (32.0-36.0); Mean Corpuscular Hemoglobin 31.9 pg (27.0-31.0); Mean Corpuscular Volume 95.9 fl (78.0-98.0); Mean Platelet Volume 8.7 fL (7.4-10.4); Platelet Count 133 10x3/uL (130-400); RBC Distribution Width 13.2 % (11.5-14.5); Red Blood Cell (RBC) Count 3.42 mill/uL (4.70-6.10); White Blood Cell (WBC) Count 7.2 10x3/uL (4.8-10.8)
[2023-04-29 06:54] LABS: ALT (SGPT) 13 U/L (8-55); AST (SGOT) 14 U/L (5-34); Albumin 2.8 g/dL (3.4-4.8); Alkaline Phosphatase 79 U/L (40-110); Anion Gap 12 mmol/L (10-20); BUN (Urea Nitrogen) 11 mg/dL (8.4-25.7); Bilirubin, Total 0.7 mg/dL (0.2-1.2); Calc. Creatinine Clearance 94 mL/min (70-130); Calcium 8.7 mg/dL (7.8-10.44); Carbon Dioxide 25 mmol/L (23-31); Chloride 102 mmol/L (98-107); Estimated GFR 88; Globulin 2.9 g/dL (2.4-3.5); Glucose 113 mg/dL (83-110); Potassium 4.2 mmol/L (3.5-5.1); Protein, Total 5.7 g/dL (5.8-8.1); Sodium 135 mmol/L (136-145)
[2023-04-29] MEDS ORDERED: Magnesium 2 GM/50 ML(in water) 2 GM in Premix 1 BAG IVPB SCH (08:00)
[2023-04-29] MEDS ORDERED: Torsemide 20 MG TAB PO SCH (09:00)
[2023-04-29] MEDS: Spironolactone 25 MG TAB PO SCH (09:20)
[2023-04-29] MEDS: Folic Acid 1 MG TAB PO SCH (09:20)
[2023-04-29] MEDS: Famotidine 20 MG TAB PO SCH ×2 (09:20→20:47)
[2023-04-29] MEDS: Losartan 25 MG TAB PO SCH (09:21)
[2023-04-29] MEDS: Multivit, Therapeutic 1 TAB PO SCH (09:21)
[2023-04-29] MEDS: Sulfameth/Trimethoprim DS 800-160mg TAB PO SCH (09:21)
[2023-04-29] MEDS ORDERED: traMADol HCl 50 MG TAB PO PRN (11:35)
[2023-04-29] MEDS ORDERED: Lorazepam 1 MG TAB PO PRN (12:11)
[2023-04-29] MEDS ORDERED: Acetaminophen 325 MG TAB PO PRN (13:29)
[2023-04-29] MEDS: Thiamine HCl 200 MG/2 ML VIAL SLOW IVP SCH (15:19)
[2023-04-29] MEDS ORDERED: FLU VACC QS2023(65UP)/MF59C/PF 60 MCG/0.5 ML SYRINGE IM ONE (17:15)
[2023-04-30 07:04] LABS: Hematocrit 33.1 % (42.0-52.0); Mean Corpuscular HGB CONC 33.2 g/dL (32.0-36.0); Mean Corpuscular Hemoglobin 31.8 pg (27.0-31.0); Mean Corpuscular Volume 95.7 fl (78.0-98.0); Mean Platelet Volume 8.5 fL (7.4-10.4); Platelet Count 138 10x3/uL (130-400); RBC Distribution Width 13.1 % (11.5-14.5); Red Blood Cell (RBC) Count 3.46 mill/uL (4.70-6.10); White Blood Cell (WBC) Count 7.2 10x3/uL (4.8-10.8)
[2023-04-30 07:17] LABS: INR-International Normal Ratio 1.1; PTT 41.7 sec (22.9-36.1); Prothrombin Time 14.9 sec (12.0-14.7)
[2023-04-30 07:25] LABS: Anion Gap 13 mmol/L (10-20); BUN (Urea Nitrogen) 11 mg/dL (8.4-25.7); Calc. Creatinine Clearance 76 mL/min (70-130); Calcium 8.9 mg/dL (7.8-10.44); Carbon Dioxide 27 mmol/L (23-31); Chloride 95 mmol/L (98-107); Estimated GFR 77; Glucose 112 mg/dL (83-110); Potassium 3.9 mmol/L (3.5-5.1); Sodium 131 mmol/L (136-145)
[2023-04-30] MEDS: Famotidine 20 MG TAB PO SCH (08:45)
[2023-04-30] MEDS: Spironolactone 25 MG TAB PO SCH (08:45)
[2023-04-30] MEDS: Folic Acid 1 MG TAB PO SCH (08:45)
[2023-04-30] MEDS: Losartan 25 MG TAB PO SCH (08:46)
[2023-04-30] MEDS: Sulfameth/Trimethoprim DS 800-160mg TAB PO SCH (08:46)
[2023-04-30] MEDS: Multivit, Therapeutic 1 TAB PO SCH (08:46)
[2023-04-30] MEDS ORDERED: Lorazepam 1 MG TAB PO PRN (12:11)
[2023-04-30 12:19] VITALS: BP 167/98; TEMP 98.2
[2023-05-01] MEDS ORDERED: Lorazepam 0.5 MG TAB PO PRN (12:11)
[2023-05-01] MEDS ORDERED: Thiamine 100 MG TAB PO SCH (14:00)
== END 2023-04-30 13:45 | disposition home or self-care (01) | DRG 436 ==
LOC: ERS 03:13 → ERHOLD 09:37 → T4-B 13:50 → OBSVTOIN 04-29 14:03
PROVIDERS: ADMIT Internal Medicine; ATTEND Internal Medicine
DX: C22.0 Liver cell carcinoma (principal); E87.1 Hypo-osmolality and hyponatremia; I50.32 Chronic diastolic (congestive) heart failure; R16.0 Hepatomegaly, not elsewhere classified; Z66 Do not resuscitate; M54.9 Dorsalgia, unspecified; D63.8 Anemia in other chronic diseases classified elsewhere; G89.29 Other chronic pain; M19.90 Unspecified osteoarthritis, unspecified site; H35.30 Unspecified macular degeneration; G62.9 Polyneuropathy, unspecified; F10.90 Alcohol use, unspecified, uncomplicated; I11.0 Hypertensive heart disease with heart failure; F10.20 Alcohol dependence, uncomplicated; Z88.5 Allergy status to narcotic agent; Z79.899 Other long term (current) drug therapy; Z79.2 Long term (current) use of antibiotics; Z98.49 Cataract extraction status, unspecified eye; Z98.890 Other specified postprocedural states; Z90.49 Acquired absence of other specified parts of digestive tract; Z90.89 Acquired absence of other organs; Z82.49 Family history of ischemic heart disease and other diseases of the circulatory system
CPT/HCPCS: 36415; 71045; 74177; 74183; 76705; 80048; 80053; 81001; 82105; 82378; 83605; 83690; 83735; 84484; 85025; 85027; 85610; 85730; 86301; 87040; 87149; 90471; 90694; 93005; 96361; 96374; 96375; 96376; G0008; G0378; J2270; J2405; J3411; J3475; Q9967

== ENCOUNTER 2023-05-07 09:04 | Outpatient (CLI) | payer MEDICARE, BC | END 2023-05-07 09:05 | disposition home or self-care (01) | LOC: CT 09:04 | PROVIDERS: ATTEND Internal Medicine Hematology & Oncology | DX: C22.0 Liver cell carcinoma (principal) | CPT/HCPCS: 71260 ==

== ENCOUNTER 2023-05-19 08:26 | Day surgery (SDC) | payer MEDICARE, BC ==
[2023-05-19 08:40] LABS: #Basophils 0.1 thou/uL (0.0-0.2); #Eosinphils 0.7 thou/uL (0.0-0.7); #Monocytes 0.6 thou/uL (0.11-0.59); #Neutrophils 5.6 thou/uL (1.40-6.50); %Eosinophils 7.8 % (0.0-10.0); %Lymphocytes 18.1 % (21.0-51.0); %Monocytes 6.8 % (0.0-10.0); Hematocrit 37.4 % (42.0-52.0); Hemoglobin 12.5 g/dL (14.0-18.0); Mean Corpuscular HGB CONC 33.4 g/dL (32.0-36.0); Mean Corpuscular Hemoglobin 31.3 pg (27.0-31.0); Mean Corpuscular Volume 93.5 fl (78.0-98.0); Mean Platelet Volume 8.2 fL (7.4-10.4); Platelet Count 144 10x3/uL (130-400); RBC Distribution Width 13.7 % (11.5-14.5); White Blood Cell (WBC) Count 8.6 10x3/uL (4.8-10.8)
[2023-05-19 09:00] LABS: PTT 39.3 sec (22.9-36.1)
[2023-05-19] MEDS ORDERED: fentaNYL 50 mcg/mL 1 mL Vial ONE ×2 (09:07→11:21)
[2023-05-19] MEDS ORDERED: Sodium Bicarbonate 2.5 MEQ/5 ML VIAL ONE (09:07)
[2023-05-19] MEDS ORDERED: Midazolam HCl 2 mg/2 ml Vial ONE ×2 (09:07→11:21)
[2023-05-19 09:34] VITALS: BP 177/88; TEMP 98.1
[2023-05-19] MEDS ORDERED: FLU VACC QS2023(65UP)/MF59C/PF 60 MCG/0.5 ML SYRINGE IM ONE (14:00)
== END 2023-05-19 14:32 | disposition home or self-care (01) ==
LOC: CT 08:26
PROVIDERS: ATTEND Internal Medicine Hematology & Oncology
PROC: 0FD13ZX Extraction of Right Lobe Liver, Percutaneous Approach, Diagnostic (ICD-10-PCS; principal; 2023-05-19)
DX: C22.0 Liver cell carcinoma (principal)
CPT/HCPCS: 47000; 77002; 85025; 85610; 85730; 87070; 87075; 87205; 88333; 88334; J3010; 36415; 88307; J2250

== ENCOUNTER 2023-09-14 08:23 | Outpatient (CLI) | payer MEDICARE, BC ==
[2023-09-14] MEDS ORDERED: Iopamidol 370 76% 100 ML VIAL ONE (13:44)
== END 2023-09-14 08:24 | disposition home or self-care (01) ==
LOC: CT 08:23
PROVIDERS: ATTEND Internal Medicine Hematology & Oncology
DX: C22.0 Liver cell carcinoma (principal); J98.11 Atelectasis; J98.4 Other disorders of lung; I70.0 Atherosclerosis of aorta; I70.8 Atherosclerosis of other arteries; D73.89 Other diseases of spleen; N28.89 Other specified disorders of kidney and ureter; K42.9 Umbilical hernia without obstruction or gangrene; K43.9 Ventral hernia without obstruction or gangrene; N62 Hypertrophy of breast; M43.16 Spondylolisthesis, lumbar region; R93.2 Abnormal findings on diagnostic imaging of liver and biliary tract; R16.0 Hepatomegaly, not elsewhere classified; R59.9 Enlarged lymph nodes, unspecified; Z98.1 Arthrodesis status
CPT/HCPCS: 74177; 82565; Q9967